=== PATIENT | male | born 1945 | race Caucasian/White ===

== ENCOUNTER 2018-10-23 08:40 | Inpatient (IN) ==
[2018-10-23 08:53] VITALS: BMI 19.0
--- NOTE | 2018-10-23 09:03 | DR.EXTPAIN ---
HPI Time seen Time Seen by Provider: 10/23/18 09:01 PCP Primary Care Physician: TAMERA HPI Comment HPI Comment: HISTORY LUNG CA. PATIENT SAID PAIN IS SEVERE. DENIES TRAUMA. Complaint/Symptoms Chief Complaint Doctor Comments: NECK AND BACK PAIN NOT IMPROVE WITH PAIN MED AT HOME. Chief Complaint:: PATIENT STATED THAT HE IS HAVING SEVERE NECK AND BACK PAIN. HE STATED THAT HE TAKES PERCOCET 5/325 MG AT HOME AND THE LAST DOSE WAS 5 HOURS AGO. 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 OLGUIN IN [place] FOR THIS. HE WAS IN THE HOSPITAL FOR 6 DAYS AND WAS RELEASED TUESDAY. 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 Past Surgical History: Yes Family History History of Family Medical Conditions: No Social History Does patient currently use any type of tobacco product: No Have you used tobacco products in the last 12 months: No Type of Tobacco Use: None Does any household member use tobacco: No Alcohol Use: None Do you use any recreational Drugs:: No Lives With: Family Lives Where: Home infectious screening In the last 2 months have you had wt loss of >10#?: NO Have you had fever, night sweats or hemotysis?: No Have you traveled outside the country in the last 6 months?: No Isolation: Standard ROS Review of Systems Constitutional: Weakness and Fatigue Eyes: No Symptoms Reported ENTM: No Symptoms Reported Respiratoy: Short of Breath (ON EXERTION) Cardiovascular: No Symptoms Reported Gastrointestinal/Abdominal: No Symptoms Reported Genitourinary: negative Dysuria Neurological: Weakness Musculoskeletal: Back Pain and Neck Integumentary: No Symptoms Reported Hematologic/Lymphatic: No Symptoms Reported Endocrine: No Symptoms Reported Psychiatric: No Symptoms Reported All Other Systems: Reviewed and Negative PE Vital Signs Vitals: Temperature 97.2 F Pulse Rate [Left Brachial] 95 Pulse Rate [Brachial] 105 Pulse Rate 101 Respiratory Rate 20 Blood Pressure [Left Arm] 105/71 Blood Pressure [Right Arm] 115/80 Blood Pressure 103/68 O2 Sat by Pulse Oximetry 96 General Limitations: No Limitations General Appearance: Alert and In Distress (MILD RESP. DISTRESS.) Head Head Exam: Normal Inspection Eyes Eye exam: Normal Appearance ENT ENT Exam: Normal Exam Neck Neck Exam: Normal Inspection Chest Chest Inspection: Symmetric Chest Wall Rise Respiratory Respiratory Exam: Respiratory Distress Respiratory Exam: Bilateral: Rhonchi and Lower: Rhonchi Cardiovascular Cardiovascular Exam: Regular Rate and Normal Rhythm Abdominal Exam Abdominal Exam: Normal Inspection, Normal Bowel Sounds and Soft Extremities Extremities Exam: Normal Inspection Back Back Exam: Tenderness Neurological Neurological Exam: Alert, Oriented X3 and CN II-XII Intact; negative Motor Sensory Deficit Psychiatric Psychiatric Exam: Normal Affect and Normal Mood Skin Skin Exam: Dry MDM Differential Diagnosis Differential Diagnosis: Other (INTRACTABLE PAIN, METASTATIC CANCER, GENERALIZE WEAKNESS, RESPIRATORY DISTRESS.) COURSE Treatment Treatment: SEE ORDERS. Consultation Consultation Comments: DR PHILLIPS WILL ADMIT PATIENT. Education/Counseling Education/Counseling: Patient and Family Educated On: Diagnosis and Needs for Follow Up ROR Labs Reviewed Laboratory Results Reviewed?: Yes Result Diagrams: 11/04/18 05:24 11/04/18 05:24 Laboratory: WBC 6.4 X10^3/uL (3.6-10.0) 11/04/18 05:24 RBC 3.25 X10^6/uL (4.7-6.0) L 11/04/18 05:24 Hgb 10.4 g/dL (13.5-18.0) L 11/04/18 05:24 Hct 31.0 % (42.0-54.0) L 11/04/18 05:24 MCV 95.5 fL (80.0-100.0) 11/04/18 05:24 MCH 31.9 pg (27.0-34.0) 11/04/18 05:24 MCHC 33.4 g/dL (33.0-35.0) 11/04/18 05:24 RDW 17.9 % (11.6-16.5) H 11/04/18 05:24 Plt Count 210 X10^3/uL (150.0-450.0) 11/04/18 05:24 MPV 8.1 fL (7.4-11.0) 11/04/18 05:24 Neut % (Auto) 69.3 % (42.0-75.0) 11/04/18 05:24 Lymph % (Auto) 13.7 % (21.0-51.0) L 11/04/18 05:24 [place] % (Auto) 13.6 % (0.0-13.0) H 11/04/18 05:24 Eos % (Auto) 2.9 % (0.9-2.9) 11/04/18 05:24 Baso % (Auto) 0.5 % (0.2-1.0) 11/04/18 05:24 Neut # (Auto) 4.4 x10^3/uL (2.2-4.8) 11/04/18 05:24 Lymph # (Auto) 0.9 X10^3/uL (1.3-2.9) L 11/04/18 05:24 [place] # (Auto) 0.9 x10^3/uL (0.3-0.8) H 11/04/18 05:24 Eos # (Auto) 0.2 x10^3/uL (0.0-0.2) 11/04/18 05:24 Baso # (Auto) 0.0 X10^3/uL (0.0-0.1) 11/04/18 05:24 Absolute Nucleated RBC 0.0 /100WBC 11/04/18 05:24 Sodium 132 mmol/L (136-145) L 11/04/18 05:24 Corrected Sodium TNP 11/04/18 05:24 Potassium 3.9 mmol/L (3.5-5.1) 11/04/18 05:24 Chloride 100 mmol/L (98-107) 11/04/18 05:24 Carbon Dioxide 22.2 mmol/L (21-32) 11/04/18 05:24 BUN 9 mg/dL (7-18) 11/04/18 05:24 Creatinine 0.43 mg/dL (0.70-1.30) L 11/04/18 05:24 Est GFR (MDRD) Af Amer > 60 (>60) 11/04/18 05:24 Est GFR (MDRD) Non-Af > 60 (>60) 11/04/18 05:24 Glucose 109 mg/dL (65-99) H 11/04/18 05:24 Calcium 7.7 mg/dL (8.5-10.1) L 11/04/18 05:24 Corrected Calcium 9.6 mg/dL (8.5-10.1) 11/04/18 05:24 Magnesium 2.6 mg/dL (1.7-2.9) 10/26/18 04:33 Iron 20 ug/dL (50-175) L 10/28/18 12:43 Transferrin 121 mg/dL (202-364) L 10/28/18 12:43 Ferritin 682 ng/mL (26-388) H 10/28/18 12:43 Total Bilirubin 0.30 mg/dL (0.2-1.0) 11/04/18 05:24 AST 31 Units/L (15-37) 11/04/18 05:24 ALT 23 Units/L (12-78) 11/04/18 05:24 Alkaline Phosphatase 82 Units/L (46-116) 11/04/18 05:24 Total Protein 5.1 g/dL (6.4-8.2) L 11/04/18 05:24 Albumin 1.6 g/dL (3.4-5.0) L 11/04/18 05:24 Globulin 3.5 g/dL (2.5-4.5) 11/04/18 05:24 Albumin/Globulin Ratio 0.5 Ratio (1.1-2.1) L 11/04/18 05:24 Vitamin B12 1250 pg/mL (193-986) H 10/28/18 12:43 Folate 19.0 ng/mL (>8.6) 10/28/18 12:43 Specimen Type Clean catch urine 10/23/18 21:34 Urine Color Yellow (YELLOW) 10/23/18 21:34 Urine Appearance Clear (CLEAR) 10/23/18 21:34 Urine pH 6.0 (5.0 - 8.0) 10/23/18 21:34 Ur Specific [place] 1.020 (1.000-1.030) 10/23/18 21:34 Urine Protein 1+ (NEGATIVE) 10/23/18 21:34 Urine Glucose (UA) Negative (NEGATIVE) 10/23/18 21:34 Urine Ketones 1+ (NEGATIVE) 10/23/18 21:34 Urine Occult Blood 3+ (NEGATIVE) 10/23/18 21:34 Urine Nitrite Negative (NEGATIVE) 10/23/18 21:34 Urine Bilirubin Negative (NEGATIVE) 10/23/18 21:34 Urine Urobilinogen Normal (NORMAL) 10/23/18 21:34 Ur Leukocyte Esterase Negative (NEGATIVE) 10/23/18 21:34 Urine RBC 0-2 /HPF (NONE SEEN) 10/23/18 21:34 Urine WBC 0-2 /HPF (NONE SEEN) 10/23/18 21:34 Ur Squamous Epith Cells Rare /HPF (NEGATIVE) 10/23/18 21:34 Amorphous Sediment 1+ /HPF (NEGATIVE) 10/23/18 21:34 Urine Bacteria Negative /HPF (NEGATIVE) 10/23/18 21:34 Urine Mucus Moderate /HPF (NEGATIVE) 10/23/18 21:34 Ur Culture Indicated? No/not indicated 10/23/18 21:34 XRAY XRAY Interpreted by: Radiologist XRAY Findings: REPORT DISCUSS WITH PATIENT. Diagnosis Discharge Problem: Cancer associated pain Back pain Qualifiers: Back pain location: low back pain Back pain laterality: bilateral Sciatica presence: with sciatica Sciatica laterality: bilateral sciatica Instructions Instructions: Chronic Obstructive Pulmonary Disease Exacerbation, [id number] Constipation, Adult, [id number] What You Need to Know About Chronic Back Pain Back Pain, Adult, [id number] Pain Medicine Instructions, [place]bus-id-Ixni Lung Cancer Fentanyl skin patch
[2018-10-23] MEDS ORDERED: ZOFRAN INJ 4 MG VIAL IVP ONE (09:16)
[2018-10-23] MEDS ORDERED: DILAUDID INJ IVP ONE ×2 (09:17→11:39)
[2018-10-23] MEDS ORDERED: ZOFRAN INJ 4 MG VIAL ONE ×2 (09:20→15:12)
[2018-10-23] MEDS ORDERED: DILAUDID INJ ONE ×3 (09:21→15:12)
--- NOTE | 2018-10-23 12:01 | CT ---
HISTORY: Severe back pain Study: CT lumbar spine without contrast Comparison: None Technique: Axial noncontrast images with coronal and sagittal reformats. Dose reduction procedures were used with mA/kv adjusted for body size. Findings: The bones are osteopenic. The alignment is normal. The vertebral bodies are of average height. No compression fractures are identified. Mixed lytic and sclerotic lesions are identified involving the right side of the L1 vertebral body and right pedicleand the vertebral body of L3. These are suspicious for metastatic foci. The pedicles, spinous processes, and posterior elements are intact. The visualized portions of the SI joints and sacrum are intact. There is a sclerotic lesion in the left iliac bone possibly a metastasis. The disc levels are evaluated as follows: L1-2 level: No evidence for compressive disc disease. The neural foramina are patent. Bilateral facet arthropathy is present. L2-3 level: Concentric disc bulging effaces the thecal sac and contributes along with pedicular shortening to lateral recess narrowing bilaterally. Bilateral facet arthropathy is present. L3-4 level: Concentric disc bulging effaces the thecal sac and contributes along with pedicular shortening and facet arthropathy to lateral recess narrowing bilaterally. L3-4 level: Broad-based disc protrusion contributes along with pedicular shortening and severe facet arthropathy to a significant canal stenosis with lateral recess and foraminal narrowing bilaterally. L5-S1 level: No definite evidence for compressive disc protrusion. Pedicular shortening contributes to lateral recess and foraminal narrowing bilaterally. 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 Nuclear medicine bone scan is recommended for further evaluation Findings for each disc level described in detail above Reported By:
[2018-10-23] MEDS ORDERED: ALBUTEROL SULFATE IN PRN (14:40)
[2018-10-23] MEDS ORDERED: VENTOLIN or PROAIR HFA IN PRN (14:40)
[2018-10-23] MEDS ORDERED: NS 1000 ML 1,000 ML ONE (14:57)
[2018-10-23] MEDS: NS 1000 ML 1,000 ML IV SCH (15:05)
[2018-10-23] MEDS: ZOFRAN INJ 4 MG VIAL IVP PRN (15:15)
[2018-10-23] MEDS: DILAUDID INJ IVP PRN ×3 (15:15→23:20)
[2018-10-23] MEDS ORDERED: LOVENOX INJ 60 MG SYR SC ONE (15:45)
[2018-10-23] MEDS ORDERED: LOVENOX INJ 60 MG SYR SC SCH (16:00)
[2018-10-23] MEDS: DUONEB 0.5 MG/3 MG NEB SCH ×2 (17:27→20:51)
[2018-10-23] MEDS: PULMICORT NEB TX 0.5 MG NEB SCH (20:51)
[2018-10-23] MEDS: COLACE CAP 100 MG PO SCH (21:20)
[2018-10-23] MEDS: MILK OF MAGNESIA PO SCH (21:20)
[2018-10-23] MEDS: ATIVAN TAB 0.5 MG PO SCH ×2 (21:21→23:20)
[2018-10-23 21:56] LABS: BILIRUBIN,URINE NEGATIVE (NEGATIVE); BLOOD/HEMOGLOBIN,URINE 3+ (NEGATIVE); GLUCOSE, URINE NEGATIVE (NEGATIVE); KETONES,URINE 1+ (NEGATIVE); LEUKOCYTE ESTERASE ,URINE NEGATIVE (NEGATIVE); NITRITES,URINE NEGATIVE (NEGATIVE); PROTEIN,URINE 1+ (NEGATIVE); UROBILINOGEN,URINE NORMAL (NORMAL)
[2018-10-23 22:03] LABS: APPEARANCE,URINE CLEAR (CLEAR); COLOR,URINE YELLOW (YELLOW)
[2018-10-23 22:04] LABS: AMORPHOUS SEDIMENT,UR 1+ /HPF (NEGATIVE); BACTERIA,URINE NEGATIVE /HPF (NEGATIVE); MUCUS,URINE MODERATE /HPF (NEGATIVE); RBC,URINE 0-2 /HPF (NONE SEEN); SQUAMOUS EPITHELIAL CELL,UR RARE /HPF (NEGATIVE)
[2018-10-24] MEDS: DUONEB 0.5 MG/3 MG NEB SCH ×5 (00:31→20:55)
[2018-10-24] MEDS: NS 1000 ML 1,000 ML IV SCH ×2 (03:19→19:56)
[2018-10-24] MEDS: DILAUDID INJ IVP PRN ×5 (03:19→20:00)
[2018-10-24 05:00] LABS: BASOPHILS % (AUTO) 0.2 % (0.2-1.0); EOSINOPHILS # (AUTO) 0.1 x10^3/uL (0.0-0.2); HEMATOCRIT 32.3 % (42.0-54.0); HEMOGLOBIN 10.9 g/dL (13.5-18.0); LYMPHOCYTES # (AUTO) 0.3 X10^3/uL (1.3-2.9); LYMPHOCYTES % (AUTO) 3.5 % (21.0-51.0); MEAN CORPUSCULAR HEMOGLOBIN 32.3 pg (27.0-34.0); MEAN CORPUSCULAR HGB CONC 33.8 g/dL (33.0-35.0); MEAN CORPUSCULAR VOLUME 95.5 fL (80.0-100.0); MEAN PLATELET VOLUME 7.9 fL (7.4-11.0); MONOCYTES # (AUTO) 0.8 x10^3/uL (0.3-0.8); MONOCYTES % (AUTO) 8.6 % (0.0-13.0); NEUTROPHILS # (AUTO) 7.8 x10^3/uL (2.2-4.8); NEUTROPHILS % (AUTO) 86.7 % (42.0-75.0); PLATELET COUNT 276 X10^3/uL (150.0-450.0); RED BLOOD COUNT 3.38 X10^6/uL (4.7-6.0)
[2018-10-24 05:10] LABS: ALANINE AMINOTRANSFERASE 41 Units/L (12-78); ALBUMIN 2.5 g/dL (3.4-5.0); ALKALINE PHOSPHATASE 56 Units/L (46-116); ASPARTATE AMINO TRANSFERASE 26 Units/L (15-37); BLOOD UREA NITROGEN 22 mg/dL (7-18); CHLORIDE 100 mmol/L (98-107); COR CA(FOR HYPOALB) 9.2 mg/dL (8.5-10.1); CREATININE 0.56 mg/dL (0.70-1.30); SODIUM 134 mmol/L (136-145); eGFR NON BLACK RACES > 60 (>60)
[2018-10-24] MEDS: LOVENOX INJ 60 MG SYR SC SCH ×2 (05:10→17:11)
[2018-10-24] MEDS ORDERED: POTASSIUM CHL 60 MEQ/NS 0.45% 500 ML IV PRN (05:25)
[2018-10-24] MEDS ORDERED: MICRO K EXTEN CAP 10 MEQ PO PRN (05:25)
[2018-10-24] MEDS ORDERED: POTASSIUM CHL 40 MEQ/NS 0.45% 500 ML IV PRN (05:25)
[2018-10-24] MEDS ORDERED: K-RIDER 10 MEQ/NS 100 ML 10 MEQ/100 ML BAG IV PRN (05:25)
[2018-10-24] MEDS ORDERED: POTASSIUM CHLORIDE LIQ 20 MEQ UDC PO PRN (05:25)
[2018-10-24] MEDS ORDERED: KLOR-CON PO PRN (05:25)
[2018-10-24] MEDS: MAGNESIUM SULFATE 1 GRAM/100 mL PREMIX 1 GM/100 ML BAG IV PRN ×2 (06:08→17:10)
[2018-10-24] MEDS: MILK OF MAGNESIA PO SCH ×2 (06:08→20:10)
[2018-10-24] MEDS: COLACE CAP 100 MG PO SCH ×2 (06:09→19:59)
[2018-10-24] MEDS: PULMICORT NEB TX 0.5 MG NEB SCH ×2 (08:58→20:55)
[2018-10-24] MEDS: ATIVAN TAB 0.5 MG PO SCH ×2 (15:22→19:59)
[2018-10-24] MEDS ORDERED: TORADOL 30 MG VIAL IVP PRN (15:24)
[2018-10-24] MEDS: ZOFRAN INJ 4 MG VIAL IVP PRN (20:00)
[2018-10-24] MEDS: CHECK PATCH XX SCH (20:08)
[2018-10-24] MEDS ORDERED: DULCOLAX SUPPOSITORY 10 MG RECTAL ONE (20:38)
[2018-10-25] MEDS: DILAUDID INJ IVP PRN ×3 (00:12→12:12)
[2018-10-25] MEDS: DUONEB 0.5 MG/3 MG NEB SCH ×7 (01:00→20:41)
[2018-10-25] MEDS: NS 1000 ML 1,000 ML IV SCH ×3 (03:41→17:36)
[2018-10-25 05:23] LABS: BASOPHILS # (AUTO) 0.1 X10^3/uL (0.0-0.1); BASOPHILS % (AUTO) 0.8 % (0.2-1.0); EOSINOPHILS # (AUTO) 0.2 x10^3/uL (0.0-0.2); HEMOGLOBIN 10.6 g/dL (13.5-18.0); LYMPHOCYTES # (AUTO) 0.4 X10^3/uL (1.3-2.9); LYMPHOCYTES % (AUTO) 4.5 % (21.0-51.0); MEAN CORPUSCULAR HEMOGLOBIN 32.1 pg (27.0-34.0); MEAN CORPUSCULAR HGB CONC 33.1 g/dL (33.0-35.0); MEAN PLATELET VOLUME 8.1 fL (7.4-11.0); MONOCYTES # (AUTO) 0.8 x10^3/uL (0.3-0.8); MONOCYTES % (AUTO) 9.5 % (0.0-13.0); NEUTROPHILS # (AUTO) 6.7 x10^3/uL (2.2-4.8); NEUTROPHILS % (AUTO) 83.2 % (42.0-75.0); PLATELET COUNT 226 X10^3/uL (150.0-450.0); RED CELL DISTRIBUTION WIDTH 19.2 % (11.6-16.5)
[2018-10-25 05:39] LABS: ALANINE AMINOTRANSFERASE 43 Units/L (12-78); ALBUMIN 2.4 g/dL (3.4-5.0); ALKALINE PHOSPHATASE 71 Units/L (46-116); ASPARTATE AMINO TRANSFERASE 31 Units/L (15-37); BLOOD UREA NITROGEN 19 mg/dL (7-18); CALCIUM 7.9 mg/dL (8.5-10.1); CHLORIDE 99 mmol/L (98-107); COR CA(FOR HYPOALB) 9.2 mg/dL (8.5-10.1); CREATININE 0.58 mg/dL (0.70-1.30); MAGNESIUM 2.3 mg/dL (1.7-2.9); SODIUM 133 mmol/L (136-145); eGFR NON BLACK RACES > 60 (>60)
[2018-10-25] MEDS: LOVENOX INJ 60 MG SYR SC SCH ×2 (05:46→17:36)
[2018-10-25] MEDS: K-DUR TAB 20 MEQ PO PRN (06:06)
[2018-10-25] MEDS: ATIVAN TAB 0.5 MG PO SCH ×2 (08:45→10:35)
[2018-10-25] MEDS: PULMICORT NEB TX 0.5 MG NEB SCH ×2 (08:45→20:41)
[2018-10-25] MEDS: CHECK PATCH XX SCH ×2 (10:08→20:41)
--- NOTE | 2018-10-25 12:21 | DR.H&P ---
H&P - History & Physical for Day of: H&P Date: 10/23/18 - Chief Complaint Chief Complaint: NECK PAIN, BACK PAIN - History of Present Illness History of Present Illness: IS A 72 YEAR OLD PATIENT OF OURS WHO PRESENTED TO THE EMERGENCY ROOM WITH COMPLAINTS OF SEVERE NECK AND UPPER AND LOWER BACK PAIN. HE REPORTS A HISTORY OF LUNG AND SPINE CANCER FOR WHICH HE IS CURRENLY BEING TREATED BY . HE REPORTS TAKING PERCOCET 5/325MG PO AT HOME WITH NO RELIEF. ON ARRIVAL, VITALS WERE 98.2-107-20-92%-103/68. LABS WERE OBTAINED. ABNORMAL LAB VALUES INCLUDE THE FOLLOWING: RBC 3.38, HGB 10.9, HCT 32.3, SODIUM 134, BUN 22, CREATINE 0.56, CALCIUM 8.0, TOTAL PROTEIN 6.0, ALBUMIN 2.5. URINALYSIS REVEALED WBC 0-2, RBC 0-2, BACTERIA NEGATIVE, MUCUS MODERATE, LEUKOCYTES NEGATIVE. A LUMBAR SPINE CT WAS OBTAINED AND REVEALED: L1-2 level: No evidence for compressive disc disease. The neural foramina are patent. Bilateral facet arthropathy is present. L2-3 level: Concentric disc bulging effaces the thecal sac and contributes along with pedicular shortening to lateral recess narrowing bilaterally. Bilateral facet arthropathy is present. L3-4 level: Concentric disc bulging effaces the thecal sac and contributes along with pedicular shortening and facet arthropathy to lateral recess narrowing bilaterally. L3-4 level: Broad-based disc protrusion contributes along with pedicular shortening and severe facet arthropathy to a significant canal stenosis with lateral recess and foraminal narrowing bilaterally. L5-S1 level: No definite evidence for compressive disc protrusion. Pedicular shortening contributes to lateral recess and foraminal narrowing bilaterally. HE WAS GIVEN DILAUDID 1MG IV X 2 DOSES WITH ONLY MILD RELIEF IN PAIN. HE WAS ADMITTED TO THE HOSPITAL FOR FURTHER EVALUATION AND TREATMENT OF INTRACTABLE BACK PAIN. HE WAS STARTED ON DILAUDID 1MG IV Q4H PRN PAIN, ZOFRAN 4MG IV Q8H PRN, AND NORMAL SALINE AT 50ML/HR. WE PLAN TO FOLLOW UP WITH AM LABS AND CONTINUE TO MONITOR. 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 - Past Surgical History Surgical History: Other - Family History Family Medical History: Cancer - Social History Does patient currently use any type of tobacco product: No Have you used tobacco products in the last 12 months: No Type of Tobacco Use: None How many years tobacco product used: 28 Does any household member use tobacco: No Alcohol Use: None Drug Use: Prescription Drugs - Medications Home Medications: No Known Drug Allergies Allergy (Verified 10/08/18 13:25) CONTINUE taking the following medications enoxaparin 60 mg SUBCUT Q12H 10/23/18 [History] folic acid 1 mg PO QDAY 10/23/18 [History] - Review of Systems Constitutional: Weakness Eyes: No Symptoms Reported ENT: No Symptoms Reported Respiratory: Shortness of Breath Cardiovascular: No Symptoms Reported Gastrointestinal: No Symptoms Reported Genitourinary: No Symptoms Reported Musculoskeletal: See HPI, Back Pain, Neck Pain Skin: No Symptoms Reported Neurological: Weakness - Physical Exam Vital Signs: Temperature 99.5 F Pulse Rate [Left Brachial] 106 Pulse Rate [Brachial] 105 Pulse Rate 101 Respiratory Rate 20 Blood Pressure [Left Arm] 112/71 Blood Pressure [Right Arm] 115/80 Blood Pressure 103/68 O2 Sat by Pulse Oximetry 92 Oriented: Normal Eyes: Normal Ear: Normal Nose: Normal Throat: Normal Respiratory: Diminished Throughout Cardiovascular: Normal : Normal Auscultation: Bowel Sounds: Normal Palpation: Normal Tenderness: Normal Skin: Normal Musculoskeletal: Back:Thoracic, Back:Lumbar, Back:Midline, Tender Psychiatric: Normal Mood Description: Calm Affect: Normal Speech Pattern: Clear - Assessment/Plan (1) Intractable back pain Status: Acute Plan: DILAUDID 1MG IV Q4H PRN PAIN, CONTINUE TO MONITOR (2) Neck pain Status: Acute Plan: DILAUDID 1MG IV Q4H PRN PAIN, CONTINUE TO MONITOR - Allergies Allergies/Adverse Reactions: Allergies Allergy/AdvReac Type Severity Reaction Status Date / Time No Known Drug Allergies Allergy Verified 10/08/18 13:25
--- NOTE | 2018-10-25 12:33 | RAD ---
History abdominal pain. No bowel movement. Study: KUB, portable Comparison: None Findings: There is a prominent amount of fecal material in the ascending and descending colon. There is prominent gas in colon as well. No definite small bowel distention is demonstrated. There is no abnormal soft tissue calcification demonstrated. Impression: Prominent fecal material in colon and prominent gas. However no definite evidence for obstruction. Reported By:
[2018-10-25] MEDS: MILK OF MAGNESIA PO SCH ×3 (15:25→20:32)
[2018-10-25] MEDS: COLACE CAP 100 MG PO SCH ×2 (15:25→20:31)
[2018-10-25] MEDS: TORADOL 30 MG VIAL IVP SCH ×2 (15:25→20:33)
[2018-10-26] MEDS: DUONEB 0.5 MG/3 MG NEB SCH ×7 (01:07→20:45)
[2018-10-26] MEDS: ATIVAN TAB 0.5 MG PO PRN (02:30)
[2018-10-26] MEDS: TORADOL 30 MG VIAL IVP SCH ×2 (02:48→08:55)
[2018-10-26 05:19] LABS: BASOPHILS % (AUTO) 0.5 % (0.2-1.0); EOSINOPHILS # (AUTO) 0.1 x10^3/uL (0.0-0.2); EOSINOPHILS % (AUTO) 1.9 % (0.9-2.9); HEMATOCRIT 28.7 % (42.0-54.0); HEMOGLOBIN 9.7 g/dL (13.5-18.0); LYMPHOCYTES # (AUTO) 0.2 X10^3/uL (1.3-2.9); LYMPHOCYTES % (AUTO) 3.8 % (21.0-51.0); MEAN CORPUSCULAR HEMOGLOBIN 32.5 pg (27.0-34.0); MEAN CORPUSCULAR HGB CONC 33.7 g/dL (33.0-35.0); MEAN CORPUSCULAR VOLUME 96.7 fL (80.0-100.0); MONOCYTES # (AUTO) 0.6 x10^3/uL (0.3-0.8); MONOCYTES % (AUTO) 9.4 % (0.0-13.0); NEUTROPHILS # (AUTO) 5.2 x10^3/uL (2.2-4.8); NEUTROPHILS % (AUTO) 84.4 % (42.0-75.0); PLATELET COUNT 180 X10^3/uL (150.0-450.0); RED BLOOD COUNT 2.97 X10^6/uL (4.7-6.0); RED CELL DISTRIBUTION WIDTH 18.5 % (11.6-16.5); WHITE BLOOD COUNT 6.1 X10^3/uL (3.6-10.0)
[2018-10-26 05:32] LABS: ALANINE AMINOTRANSFERASE 36 Units/L (12-78); ALKALINE PHOSPHATASE 70 Units/L (46-116); ASPARTATE AMINO TRANSFERASE 27 Units/L (15-37); BLOOD UREA NITROGEN 19 mg/dL (7-18); CALCIUM 7.6 mg/dL (8.5-10.1); CARBON DIOXIDE 25.6 mmol/L (21-32); CHLORIDE 101 mmol/L (98-107); COR CA(FOR HYPOALB) 9.2 mg/dL (8.5-10.1); SODIUM 134 mmol/L (136-145); TOTAL PROTEIN 5.3 g/dL (6.4-8.2); eGFR NON BLACK RACES > 60 (>60)
[2018-10-26] MEDS: LOVENOX INJ 60 MG SYR SC SCH ×2 (05:37→17:46)
[2018-10-26] MEDS: K-DUR TAB 20 MEQ PO PRN (06:27)
[2018-10-26] MEDS: COLACE CAP 100 MG PO SCH ×2 (08:54→20:18)
[2018-10-26] MEDS: MILK OF MAGNESIA PO SCH ×4 (08:54→20:18)
[2018-10-26] MEDS: CHECK PATCH XX SCH ×2 (10:10→20:19)
[2018-10-26] MEDS: NS 1000 ML 1,000 ML IV SCH ×3 (10:10→20:20)
[2018-10-26] MEDS: PULMICORT NEB TX 0.5 MG NEB SCH ×2 (11:25→20:45)
[2018-10-26] MEDS: CYMBALTA PO SCH (12:01)
[2018-10-26] MEDS: ZOFRAN INJ 4 MG VIAL IVP PRN (14:40)
[2018-10-26] MEDS: DILAUDID INJ IVP PRN (14:57)
[2018-10-26] MEDS ORDERED: BUTT CREAM (COMPOUND) TOP PRN (18:00)
--- NOTE | 2018-10-26 21:30 | PCM.PROG ---
Progress Note - Progress Note for Day of Date of Exam: 10/24/18 - Subjective Subjective: WAS ADMITTED FOR INTRACTABLE NECK AND BACK PAIN. HE HAS A HISTORY OF CANCER TO THE LUNGS AND SPINE. TODAY, HE IS ALERT AND ORIENTED, LYING IN BED ON MORNING ROUNDS. HE CONTINUES WITH COMPLAINTS OF UPPER AND LOWER BACK PAIN WELL NECK PAIN. HE ALSO REPORTS GENERALIZED WEAKNESS. HE DENIES A BOWEL MOVEMENT IN SEVERAL DAYS. ON EXAMINATION, HEART IS REGULAR IN RATE AND RHYTHM. BILATERAL LUNGS ARE NOTED WITH DIMINISHED LUNG SOUNDS THROUGHOUT. ABDOMEN IS FLAT, SOFT, AND NON-TENDER WITH NORMAL HYPOACTIVE BOWEL SOUNDS. HIS VITALS THIS MORNING ARE 98.6-105-18-99%-106/73. LABS WERE OBTAINED. ABNORMAL LAB VALUES INCLUDE THE FOLLOWING: RBC 3.38, HGB 10.9, HCT 32.3, SODIUM 134, BUN 22, CREATININE 0.56, CALCIUM 8.0, TOTAL PROTEIN 6.0, ALBUMIN 2.5. TODAY, WE WILL START A FENTANYL 25MCG TRANSDERMAL PATCH, AND REPLACE HIS POTASSIUM AND MAGNESIUM. OTHERWISE, WE WILL CONTINUE WITH PAIN MANAGEMENT AND CURRENT PLAN OF CARE. OTHERWISE, WE WILL FOLLOW UP WITH AM LABS AND CONTINUE TO MONITOR. - Past Medical Family Social History Past Med/Fam/Surg Hx: No changes since H&P Allergies: Allergies No Known Drug Allergies Allergy (Verified 10/08/18 13:25) - Review of Systems ROS: No change since H&P - Vital Signs and I&O's Vital Signs: Temperature 98.2 F Pulse Rate [Left Brachial] 101 Pulse Rate [Brachial] 105 Pulse Rate 87 Respiratory Rate 18 Blood Pressure [Left Arm] 94/62 Blood Pressure [Right Arm] 115/80 Blood Pressure 103/68 O2 Sat by Pulse Oximetry 93 Intake and Output: Intake & Output 10/24/18 10/25/18 10/26/18 10/27/18 11:59 11:59 11:59 11:59 Intake Total 890 / 890 1065 / 1065 1660 / 1660 400 / 400 Output Total 300 / 300 300 / 300 Balance 590 / 590 765 / 765 1660 / 1660 400 / 400 - Physical Exam Oriented: Normal Eyes: Normal Ear: Normal Nose: Normal Throat: Normal Respiratory: Generalized, Diminished Cardiovascular: Tachycardia. negative: S3, S4, Murmur, Edema : Normal Auscultation: Bowel Sounds: Normal Palpation: Normal Tenderness: Normal Skin: Normal Musculoskeletal: Back:Thoracic, Back:Lumbar, Back:Midline, Tender Psychiatric: Normal Mood Description: Calm Affect: Normal Speech Pattern: Clear, Appropriate - Laboratory and Diagnostics Result Diagrams: 10/26/18 04:33 10/26/18 04:33 Labs: Laboratory WBC 6.1 X10^3/uL (3.6-10.0) 10/26/18 04:33 RBC 2.97 X10^6/uL (4.7-6.0) L 10/26/18 04:33 Hgb 9.7 g/dL (13.5-18.0) L 10/26/18 04:33 Hct 28.7 % (42.0-54.0) L 10/26/18 04:33 MCV 96.7 fL (80.0-100.0) 10/26/18 04:33 MCH 32.5 pg (27.0-34.0) 10/26/18 04:33 MCHC 33.7 g/dL (33.0-35.0) 10/26/18 04:33 RDW 18.5 % (11.6-16.5) H 10/26/18 04:33 Plt Count 180 X10^3/uL (150.0-450.0) 10/26/18 04:33 MPV 8.0 fL (7.4-11.0) 10/26/18 04:33 Neut % (Auto) 84.4 % (42.0-75.0) H 10/26/18 04:33 Lymph % (Auto) 3.8 % (21.0-51.0) L 10/26/18 04:33 [place] % (Auto) 9.4 % (0.0-13.0) 10/26/18 04:33 Eos % (Auto) 1.9 % (0.9-2.9) 10/26/18 04:33 Baso % (Auto) 0.5 % (0.2-1.0) 10/26/18 04:33 Neut # (Auto) 5.2 x10^3/uL (2.2-4.8) H 10/26/18 04:33 Lymph # (Auto) 0.2 X10^3/uL (1.3-2.9) L 10/26/18 04:33 [place] # (Auto) 0.6 x10^3/uL (0.3-0.8) 10/26/18 04:33 Eos # (Auto) 0.1 x10^3/uL (0.0-0.2) 10/26/18 04:33 Baso # (Auto) 0.0 X10^3/uL (0.0-0.1) 10/26/18 04:33 Absolute Nucleated RBC 0.0 /100WBC 10/26/18 04:33 Sodium 134 mmol/L (136-145) L 10/26/18 04:33 Corrected Sodium TNP 10/26/18 04:33 Potassium 3.3 mmol/L (3.5-5.1) L 10/26/18 04:33 Chloride 101 mmol/L (98-107) 10/26/18 04:33 Carbon Dioxide 25.6 mmol/L (21-32) 10/26/18 04:33 BUN 19 mg/dL (7-18) H 10/26/18 04:33 Creatinine 0.50 mg/dL (0.70-1.30) L 10/26/18 04:33 Est GFR (MDRD) Af Amer > 60 (>60) 10/26/18 04:33 Est GFR (MDRD) Non-Af > 60 (>60) 10/26/18 04:33 Glucose 104 mg/dL (65-99) H 10/26/18 04:33 Calcium 7.6 mg/dL (8.5-10.1) L 10/26/18 04:33 Corrected Calcium 9.2 mg/dL (8.5-10.1) 10/26/18 04:33 Magnesium 2.6 mg/dL (1.7-2.9) 10/26/18 04:33 Total Bilirubin 0.60 mg/dL (0.2-1.0) 10/26/18 04:33 AST 27 Units/L (15-37) 10/26/18 04:33 ALT 36 Units/L (12-78) 10/26/18 04:33 Alkaline Phosphatase 70 Units/L (46-116) 10/26/18 04:33 Total Protein 5.3 g/dL (6.4-8.2) L 10/26/18 04:33 Albumin 2.0 g/dL (3.4-5.0) L 10/26/18 04:33 Globulin 3.3 g/dL (2.5-4.5) 10/26/18 04:33 Albumin/Globulin Ratio 0.6 Ratio (1.1-2.1) L 10/26/18 04:33 Specimen Type Clean catch urine 10/23/18 21:34 Urine Color Yellow (YELLOW) 10/23/18 21:34 Urine Appearance Clear (CLEAR) 10/23/18 21:34 Urine pH 6.0 (5.0 - 8.0) 10/23/18 21:34 Ur Specific [place] 1.020 (1.000-1.030) 10/23/18 21:34 Urine Protein 1+ (NEGATIVE) 10/23/18 21:34 Urine Glucose (UA) Negative (NEGATIVE) 10/23/18 21:34 Urine Ketones 1+ (NEGATIVE) 10/23/18 21:34 Urine Occult Blood 3+ (NEGATIVE) 10/23/18 21:34 Urine Nitrite Negative (NEGATIVE) 10/23/18 21:34 Urine Bilirubin Negative (NEGATIVE) 10/23/18 21:34 Urine Urobilinogen Normal (NORMAL) 10/23/18 21:34 Ur Leukocyte Esterase Negative (NEGATIVE) 10/23/18 21:34 Urine RBC 0-2 /HPF (NONE SEEN) 10/23/18 21:34 Urine WBC 0-2 /HPF (NONE SEEN) 10/23/18 21:34 Ur Squamous Epith Cells Rare /HPF (NEGATIVE) 10/23/18 21:34 Amorphous Sediment 1+ /HPF (NEGATIVE) 10/23/18 21:34 Urine Bacteria Negative /HPF (NEGATIVE) 10/23/18 21:34 Urine Mucus Moderate /HPF (NEGATIVE) 10/23/18 21:34 Ur Culture Indicated? No/not indicated 10/23/18 21:34 - Plan (1) Intractable back pain Status: Acute Plan: FENTANYL 25MCG PATCH, DILAUDID 1MG IV Q4H PRN PAIN, CONTINUE TO MONITOR (2) Neck pain Status: Acute Plan: FENTANYL 25MCG PATCH, DILAUDID 1MG IV Q4H PRN PAIN, CONTINUE TO MONITOR
--- NOTE | 2018-10-26 21:37 | PCM.PROG ---
Progress Note - Progress Note for Day of Date of Exam: 10/25/18 - Subjective Subjective: WAS ADMITTED FOR INTRACTABLE NECK AND BACK PAIN. HE HAS A HISTORY OF CANCER TO THE LUNGS AND SPINE. TODAY, HE IS ALERT AND ORIENTED, LYING IN BED ON MORNING ROUNDS. HE CONTINUES WITH COMPLAINTS OF UPPER AND LOWER BACK PAIN WELL NECK PAIN. HE REPORTS SLIGHT IMPROVEMENT SINCE ADMISSION. HE CONTINUES WITH GENERALIZED WEAKNESS AND DENIES A BOWEL MOVEMENT. ON EXAMINATION, HEART IS REGULAR IN RATE AND RHYTHM. BILATERAL LUNGS ARE NOTED WITH DIMINISHED LUNG SOUNDS THROUGHOUT. ABDOMEN IS FLAT, SOFT, AND NON-TENDER WITH NORMAL HYPOACTIVE BOWEL SOUNDS. HIS VITALS THIS MORNING ARE 98.2-107-20-90%NC-101/65. LABS WERE OBTAINED. ABNORMAL LAB VALUES INCLUDE THE FOLLOWING: RBC 3.30, HGB 10.6, HCT 32.0, SODIUM 133, BUN 19, CREATININE 0.58, CALCIUM 7.9, TOTAL BILI 1.10, TOTAL PROTEIN 6.0, ALBUMIN 2.4. TODAY, WE WILL START A BOWEL REGIMEN AND ATIVAN 0.5MG PO BID PRN. OTHERWISE, WE WILL CONTINUE WITH PAIN MANAGEMENT AND CURRENT PLAN OF CARE. OTHERWISE, WE WILL FOLLOW UP WITH AM LABS AND CONTINUE TO MONITOR. - Past Medical Family Social History Past Med/Fam/Surg Hx: No changes since H&P Allergies: Allergies No Known Drug Allergies Allergy (Verified 10/08/18 13:25) - Review of Systems ROS: No change since H&P - Vital Signs and I&O's Vital Signs: Temperature 98.2 F Pulse Rate [Left Brachial] 101 Pulse Rate [Brachial] 105 Pulse Rate 87 Respiratory Rate 18 Blood Pressure [Left Arm] 94/62 Blood Pressure [Right Arm] 115/80 Blood Pressure 103/68 O2 Sat by Pulse Oximetry 93 Intake and Output: Intake & Output 10/24/18 10/25/18 10/26/18 10/27/18 11:59 11:59 11:59 11:59 Intake Total 890 / 890 1065 / 1065 1660 / 1660 400 / 400 Output Total 300 / 300 300 / 300 Balance 590 / 590 765 / 765 1660 / 1660 400 / 400 - Physical Exam Oriented: Normal Eyes: Normal Ear: Normal Nose: Normal Throat: Normal Respiratory: Generalized, Diminished Cardiovascular: Tachycardia. negative: S3, S4, Murmur, Edema : Normal Auscultation: Bowel Sounds: Normal Tenderness: Normal Skin: Normal Musculoskeletal: Back:Thoracic, Back:Lumbar, Back:Midline, Tender Psychiatric: Normal Mood Description: Calm Affect: Normal Speech Pattern: Clear, Appropriate - Laboratory and Diagnostics Result Diagrams: 10/26/18 04:33 10/26/18 04:33 Labs: Laboratory WBC 6.1 X10^3/uL (3.6-10.0) 10/26/18 04:33 RBC 2.97 X10^6/uL (4.7-6.0) L 10/26/18 04:33 Hgb 9.7 g/dL (13.5-18.0) L 10/26/18 04:33 Hct 28.7 % (42.0-54.0) L 10/26/18 04:33 MCV 96.7 fL (80.0-100.0) 10/26/18 04:33 MCH 32.5 pg (27.0-34.0) 10/26/18 04:33 MCHC 33.7 g/dL (33.0-35.0) 10/26/18 04:33 RDW 18.5 % (11.6-16.5) H 10/26/18 04:33 Plt Count 180 X10^3/uL (150.0-450.0) 10/26/18 04:33 MPV 8.0 fL (7.4-11.0) 10/26/18 04:33 Neut % (Auto) 84.4 % (42.0-75.0) H 10/26/18 04:33 Lymph % (Auto) 3.8 % (21.0-51.0) L 10/26/18 04:33 [place] % (Auto) 9.4 % (0.0-13.0) 10/26/18 04:33 Eos % (Auto) 1.9 % (0.9-2.9) 10/26/18 04:33 Baso % (Auto) 0.5 % (0.2-1.0) 10/26/18 04:33 Neut # (Auto) 5.2 x10^3/uL (2.2-4.8) H 10/26/18 04:33 Lymph # (Auto) 0.2 X10^3/uL (1.3-2.9) L 10/26/18 04:33 [place] # (Auto) 0.6 x10^3/uL (0.3-0.8) 10/26/18 04:33 Eos # (Auto) 0.1 x10^3/uL (0.0-0.2) 10/26/18 04:33 Baso # (Auto) 0.0 X10^3/uL (0.0-0.1) 10/26/18 04:33 Absolute Nucleated RBC 0.0 /100WBC 10/26/18 04:33 Sodium 134 mmol/L (136-145) L 10/26/18 04:33 Corrected Sodium TNP 10/26/18 04:33 Potassium 3.3 mmol/L (3.5-5.1) L 10/26/18 04:33 Chloride 101 mmol/L (98-107) 10/26/18 04:33 Carbon Dioxide 25.6 mmol/L (21-32) 10/26/18 04:33 BUN 19 mg/dL (7-18) H 10/26/18 04:33 Creatinine 0.50 mg/dL (0.70-1.30) L 10/26/18 04:33 Est GFR (MDRD) Af Amer > 60 (>60) 10/26/18 04:33 Est GFR (MDRD) Non-Af > 60 (>60) 10/26/18 04:33 Glucose 104 mg/dL (65-99) H 10/26/18 04:33 Calcium 7.6 mg/dL (8.5-10.1) L 10/26/18 04:33 Corrected Calcium 9.2 mg/dL (8.5-10.1) 10/26/18 04:33 Magnesium 2.6 mg/dL (1.7-2.9) 10/26/18 04:33 Total Bilirubin 0.60 mg/dL (0.2-1.0) 10/26/18 04:33 AST 27 Units/L (15-37) 10/26/18 04:33 ALT 36 Units/L (12-78) 10/26/18 04:33 Alkaline Phosphatase 70 Units/L (46-116) 10/26/18 04:33 Total Protein 5.3 g/dL (6.4-8.2) L 10/26/18 04:33 Albumin 2.0 g/dL (3.4-5.0) L 10/26/18 04:33 Globulin 3.3 g/dL (2.5-4.5) 10/26/18 04:33 Albumin/Globulin Ratio 0.6 Ratio (1.1-2.1) L 10/26/18 04:33 Specimen Type Clean catch urine 10/23/18 21:34 Urine Color Yellow (YELLOW) 10/23/18 21:34 Urine Appearance Clear (CLEAR) 10/23/18 21:34 Urine pH 6.0 (5.0 - 8.0) 10/23/18 21:34 Ur Specific [place] 1.020 (1.000-1.030) 10/23/18 21:34 Urine Protein 1+ (NEGATIVE) 10/23/18 21:34 Urine Glucose (UA) Negative (NEGATIVE) 10/23/18 21:34 Urine Ketones 1+ (NEGATIVE) 10/23/18 21:34 Urine Occult Blood 3+ (NEGATIVE) 10/23/18 21:34 Urine Nitrite Negative (NEGATIVE) 10/23/18 21:34 Urine Bilirubin Negative (NEGATIVE) 10/23/18 21:34 Urine Urobilinogen Normal (NORMAL) 10/23/18 21:34 Ur Leukocyte Esterase Negative (NEGATIVE) 10/23/18 21:34 Urine RBC 0-2 /HPF (NONE SEEN) 10/23/18 21:34 Urine WBC 0-2 /HPF (NONE SEEN) 10/23/18 21:34 Ur Squamous Epith Cells Rare /HPF (NEGATIVE) 10/23/18 21:34 Amorphous Sediment 1+ /HPF (NEGATIVE) 10/23/18 21:34 Urine Bacteria Negative /HPF (NEGATIVE) 10/23/18 21:34 Urine Mucus Moderate /HPF (NEGATIVE) 10/23/18 21:34 Ur Culture Indicated? No/not indicated 10/23/18 21:34 - Plan (1) Intractable back pain Status: Acute Plan: FENTANYL 25MCG PATCH, DILAUDID 1MG IV Q4H PRN PAIN, CONTINUE TO MONITOR (2) Neck pain Status: Acute Plan: FENTANYL 25MCG PATCH, DILAUDID 1MG IV Q4H PRN PAIN, CONTINUE TO MONITOR
--- NOTE | 2018-10-26 22:45 | PCM.PROG ---
Progress Note - Progress Note for Day of Date of Exam: 10/26/18 - Subjective Subjective: WAS ADMITTED FOR INTRACTABLE NECK AND BACK PAIN. HE HAS A HISTORY OF CANCER TO THE LUNGS AND SPINE. TODAY, HE IS ALERT AND ORIENTED, LYING IN BED ON MORNING ROUNDS. HE CONTINUES WITH COMPLAINTS OF UPPER AND LOWER BACK PAIN WELL NECK PAIN. HE REPORTS SLIGHT IMPROVEMENT SINCE YESTERDAY. HE CONTINUES WITH GENERALIZED WEAKNESS AND STILL DENIES A BOWEL MOVEMENT. ON EXAMINATION, HEART IS REGULAR IN RATE AND RHYTHM. BILATERAL LUNGS ARE NOTED WITH DIMINISHED LUNG SOUNDS THROUGHOUT. ABDOMEN IS FLAT, SOFT, AND NON-TENDER WITH NORMAL HYPOACTIVE BOWEL SOUNDS. HIS VITALS THIS MORNING ARE 98.9-95-18-92%-91/54. LABS WERE OBTAINED. ABNORMAL LAB VALUES INCLUDE THE FOLLOWING: RBC 2.97, HGB 9.7, HCT 28.7, SODIUM 134, POTASSIUM 3.3, BUN 19, CREATININE 0.50, GLUCOSE 104, CALCIUM 7.6, TOTAL PROTEIN 5.3, ALBUMIN 2.0. A KUB WAS OBTAINED YESTERDAY. IT REVEALED: Prominent fecal material in colon and prominent gas. However, no definite evidence for obstruction. TODAY, WE WILL START CYMBALTA 30MG PO DAILY. OTHERWISE, WE WILL CONTINUE WITH PAIN MANAGEMENT AND CURRENT PLAN OF CARE. WE WILL FOLLOW UP WITH AM LABS AND CONTINUE TO MONITOR. - Past Medical Family Social History Past Med/Fam/Surg Hx: No changes since H&P Allergies: Allergies No Known Drug Allergies Allergy (Verified 10/08/18 13:25) - Review of Systems ROS: No change since H&P - Vital Signs and I&O's Vital Signs: Temperature 98.2 F Pulse Rate [Left Brachial] 101 Pulse Rate [Brachial] 105 Pulse Rate 87 Respiratory Rate 18 Blood Pressure [Left Arm] 94/62 Blood Pressure [Right Arm] 115/80 Blood Pressure 103/68 O2 Sat by Pulse Oximetry 93 Intake and Output: Intake & Output 10/24/18 10/25/18 10/26/18 10/27/18 11:59 11:59 11:59 11:59 Intake Total 890 / 890 1065 / 1065 1660 / 1660 400 / 400 Output Total 300 / 300 300 / 300 Balance 590 / 590 765 / 765 1660 / 1660 400 / 400 - Physical Exam Oriented: Normal Eyes: Normal Ear: Normal Nose: Normal Throat: Normal Respiratory: Generalized, Diminished Cardiovascular: Tachycardia. negative: S3, S4, Murmur, Edema : Normal Auscultation: Bowel Sounds: Normal Tenderness: Normal Skin: Normal Musculoskeletal: Back:Thoracic, Back:Lumbar, Back:Midline, Tender Psychiatric: Normal Mood Description: Calm Affect: Normal Speech Pattern: Clear, Appropriate - Laboratory and Diagnostics Result Diagrams: 10/26/18 04:33 10/26/18 04:33 Labs: Laboratory WBC 6.1 X10^3/uL (3.6-10.0) 10/26/18 04:33 RBC 2.97 X10^6/uL (4.7-6.0) L 10/26/18 04:33 Hgb 9.7 g/dL (13.5-18.0) L 10/26/18 04:33 Hct 28.7 % (42.0-54.0) L 10/26/18 04:33 MCV 96.7 fL (80.0-100.0) 10/26/18 04:33 MCH 32.5 pg (27.0-34.0) 10/26/18 04:33 MCHC 33.7 g/dL (33.0-35.0) 10/26/18 04:33 RDW 18.5 % (11.6-16.5) H 10/26/18 04:33 Plt Count 180 X10^3/uL (150.0-450.0) 10/26/18 04:33 MPV 8.0 fL (7.4-11.0) 10/26/18 04:33 Neut % (Auto) 84.4 % (42.0-75.0) H 10/26/18 04:33 Lymph % (Auto) 3.8 % (21.0-51.0) L 10/26/18 04:33 [place] % (Auto) 9.4 % (0.0-13.0) 10/26/18 04:33 Eos % (Auto) 1.9 % (0.9-2.9) 10/26/18 04:33 Baso % (Auto) 0.5 % (0.2-1.0) 10/26/18 04:33 Neut # (Auto) 5.2 x10^3/uL (2.2-4.8) H 10/26/18 04:33 Lymph # (Auto) 0.2 X10^3/uL (1.3-2.9) L 10/26/18 04:33 [place] # (Auto) 0.6 x10^3/uL (0.3-0.8) 10/26/18 04:33 Eos # (Auto) 0.1 x10^3/uL (0.0-0.2) 10/26/18 04:33 Baso # (Auto) 0.0 X10^3/uL (0.0-0.1) 10/26/18 04:33 Absolute Nucleated RBC 0.0 /100WBC 10/26/18 04:33 Sodium 134 mmol/L (136-145) L 10/26/18 04:33 Corrected Sodium TNP 10/26/18 04:33 Potassium 3.3 mmol/L (3.5-5.1) L 10/26/18 04:33 Chloride 101 mmol/L (98-107) 10/26/18 04:33 Carbon Dioxide 25.6 mmol/L (21-32) 10/26/18 04:33 BUN 19 mg/dL (7-18) H 10/26/18 04:33 Creatinine 0.50 mg/dL (0.70-1.30) L 10/26/18 04:33 Est GFR (MDRD) Af Amer > 60 (>60) 10/26/18 04:33 Est GFR (MDRD) Non-Af > 60 (>60) 10/26/18 04:33 Glucose 104 mg/dL (65-99) H 10/26/18 04:33 Calcium 7.6 mg/dL (8.5-10.1) L 10/26/18 04:33 Corrected Calcium 9.2 mg/dL (8.5-10.1) 10/26/18 04:33 Magnesium 2.6 mg/dL (1.7-2.9) 10/26/18 04:33 Total Bilirubin 0.60 mg/dL (0.2-1.0) 10/26/18 04:33 AST 27 Units/L (15-37) 10/26/18 04:33 ALT 36 Units/L (12-78) 10/26/18 04:33 Alkaline Phosphatase 70 Units/L (46-116) 10/26/18 04:33 Total Protein 5.3 g/dL (6.4-8.2) L 10/26/18 04:33 Albumin 2.0 g/dL (3.4-5.0) L 10/26/18 04:33 Globulin 3.3 g/dL (2.5-4.5) 10/26/18 04:33 Albumin/Globulin Ratio 0.6 Ratio (1.1-2.1) L 10/26/18 04:33 Specimen Type Clean catch urine 10/23/18 21:34 Urine Color Yellow (YELLOW) 10/23/18 21:34 Urine Appearance Clear (CLEAR) 10/23/18 21:34 Urine pH 6.0 (5.0 - 8.0) 10/23/18 21:34 Ur Specific [place] 1.020 (1.000-1.030) 10/23/18 21:34 Urine Protein 1+ (NEGATIVE) 10/23/18 21:34 Urine Glucose (UA) Negative (NEGATIVE) 10/23/18 21:34 Urine Ketones 1+ (NEGATIVE) 10/23/18 21:34 Urine Occult Blood 3+ (NEGATIVE) 10/23/18 21:34 Urine Nitrite Negative (NEGATIVE) 10/23/18 21:34 Urine Bilirubin Negative (NEGATIVE) 10/23/18 21:34 Urine Urobilinogen Normal (NORMAL) 10/23/18 21:34 Ur Leukocyte Esterase Negative (NEGATIVE) 10/23/18 21:34 Urine RBC 0-2 /HPF (NONE SEEN) 10/23/18 21:34 Urine WBC 0-2 /HPF (NONE SEEN) 10/23/18 21:34 Ur Squamous Epith Cells Rare /HPF (NEGATIVE) 10/23/18 21:34 Amorphous Sediment 1+ /HPF (NEGATIVE) 10/23/18 21:34 Urine Bacteria Negative /HPF (NEGATIVE) 10/23/18 21:34 Urine Mucus Moderate /HPF (NEGATIVE) 10/23/18 21:34 Ur Culture Indicated? No/not indicated 10/23/18 21:34 - Plan (1) Intractable back pain Status: Acute Plan: FENTANYL 25MCG PATCH, DILAUDID 1MG IV Q4H PRN PAIN, CONTINUE TO MONITOR (2) Neck pain Status: Acute Plan: FENTANYL 25MCG PATCH, DILAUDID 1MG IV Q4H PRN PAIN, CONTINUE TO MONITOR
[2018-10-27] MEDS: DILAUDID INJ IVP PRN ×4 (00:33→21:43)
[2018-10-27] MEDS: DUONEB 0.5 MG/3 MG NEB SCH ×6 (00:47→20:56)
[2018-10-27 05:13] LABS: BASOPHILS % (AUTO) 0.7 % (0.2-1.0); EOSINOPHILS # (AUTO) 0.1 x10^3/uL (0.0-0.2); EOSINOPHILS % (AUTO) 2.4 % (0.9-2.9); HEMATOCRIT 26.6 % (42.0-54.0); LYMPHOCYTES # (AUTO) 0.3 X10^3/uL (1.3-2.9); LYMPHOCYTES % (AUTO) 5.7 % (21.0-51.0); MEAN CORPUSCULAR HEMOGLOBIN 32.6 pg (27.0-34.0); MEAN CORPUSCULAR HGB CONC 33.7 g/dL (33.0-35.0); MEAN CORPUSCULAR VOLUME 96.7 fL (80.0-100.0); MEAN PLATELET VOLUME 8.5 fL (7.4-11.0); MONOCYTES # (AUTO) 0.6 x10^3/uL (0.3-0.8); MONOCYTES % (AUTO) 11.1 % (0.0-13.0); NEUTROPHILS # (AUTO) 4.1 x10^3/uL (2.2-4.8); NEUTROPHILS % (AUTO) 80.1 % (42.0-75.0); PLATELET COUNT 159 X10^3/uL (150.0-450.0); RED BLOOD COUNT 2.75 X10^6/uL (4.7-6.0); RED CELL DISTRIBUTION WIDTH 18.2 % (11.6-16.5); WHITE BLOOD COUNT 5.1 X10^3/uL (3.6-10.0)
[2018-10-27 05:32] LABS: ALANINE AMINOTRANSFERASE 31 Units/L (12-78); ALBUMIN 1.8 g/dL (3.4-5.0); ALKALINE PHOSPHATASE 66 Units/L (46-116); ASPARTATE AMINO TRANSFERASE 21 Units/L (15-37); BLOOD UREA NITROGEN 17 mg/dL (7-18); CALCIUM 7.1 mg/dL (8.5-10.1); CARBON DIOXIDE 24.6 mmol/L (21-32); CHLORIDE 104 mmol/L (98-107); COR CA(FOR HYPOALB) 8.9 mg/dL (8.5-10.1); CREATININE 0.45 mg/dL (0.70-1.30); SODIUM 134 mmol/L (136-145); eGFR NON BLACK RACES > 60 (>60)
[2018-10-27] MEDS: LOVENOX INJ 60 MG SYR SC SCH ×3 (05:36→17:05)
[2018-10-27] MEDS: CYMBALTA PO SCH (08:35)
[2018-10-27] MEDS: COLACE CAP 100 MG PO SCH ×2 (08:36→20:15)
[2018-10-27] MEDS: MILK OF MAGNESIA PO SCH ×5 (08:36→20:14)
[2018-10-27] MEDS: CHECK PATCH XX SCH ×2 (08:37→20:16)
[2018-10-27] MEDS: PULMICORT NEB TX 0.5 MG NEB SCH ×2 (08:45→20:57)
[2018-10-27] MEDS: ZOFRAN INJ 4 MG VIAL IVP PRN (11:49)
[2018-10-27] MEDS: NS 1000 ML 1,000 ML IV SCH (17:04)
[2018-10-28] MEDS: DUONEB 0.5 MG/3 MG NEB SCH ×6 (00:49→21:16)
[2018-10-28] MEDS: NS 1000 ML 1,000 ML IV SCH ×2 (04:33→13:59)
[2018-10-28] MEDS: LOVENOX INJ 60 MG SYR SC SCH ×2 (05:23→17:24)
[2018-10-28] MEDS: DILAUDID INJ IVP PRN ×4 (05:24→21:19)
[2018-10-28 06:46] LABS: ALANINE AMINOTRANSFERASE 29 Units/L (12-78); ALBUMIN 1.9 g/dL (3.4-5.0); ALKALINE PHOSPHATASE 69 Units/L (46-116); ASPARTATE AMINO TRANSFERASE 22 Units/L (15-37); BLOOD UREA NITROGEN 11 mg/dL (7-18); CALCIUM 7.6 mg/dL (8.5-10.1); CARBON DIOXIDE 24.8 mmol/L (21-32); CHLORIDE 100 mmol/L (98-107); COR CA(FOR HYPOALB) 9.3 mg/dL (8.5-10.1); CREATININE 0.44 mg/dL (0.70-1.30); SODIUM 133 mmol/L (136-145); TOTAL PROTEIN 5.2 g/dL (6.4-8.2); eGFR NON BLACK RACES > 60 (>60)
[2018-10-28 06:47] LABS: BASOPHILS % (AUTO) 0.5 % (0.2-1.0); EOSINOPHILS # (AUTO) 0.1 x10^3/uL (0.0-0.2); EOSINOPHILS % (AUTO) 2.3 % (0.9-2.9); HEMATOCRIT 27.8 % (42.0-54.0); HEMOGLOBIN 9.4 g/dL (13.5-18.0); LYMPHOCYTES # (AUTO) 0.3 X10^3/uL (1.3-2.9); LYMPHOCYTES % (AUTO) 4.7 % (21.0-51.0); MEAN CORPUSCULAR HEMOGLOBIN 32.2 pg (27.0-34.0); MEAN CORPUSCULAR HGB CONC 33.8 g/dL (33.0-35.0); MEAN CORPUSCULAR VOLUME 95.2 fL (80.0-100.0); MEAN PLATELET VOLUME 8.5 fL (7.4-11.0); MONOCYTES # (AUTO) 0.5 x10^3/uL (0.3-0.8); MONOCYTES % (AUTO) 10.1 % (0.0-13.0); NEUTROPHILS # (AUTO) 4.5 x10^3/uL (2.2-4.8); NEUTROPHILS % (AUTO) 82.4 % (42.0-75.0); PLATELET COUNT 151 X10^3/uL (150.0-450.0); RED BLOOD COUNT 2.92 X10^6/uL (4.7-6.0); RED CELL DISTRIBUTION WIDTH 18.6 % (11.6-16.5); WHITE BLOOD COUNT 5.4 X10^3/uL (3.6-10.0)
[2018-10-28] MEDS: PULMICORT NEB TX 0.5 MG NEB SCH ×2 (08:37→21:16)
[2018-10-28] MEDS: COLACE CAP 100 MG PO SCH ×4 (08:49→21:26)
[2018-10-28] MEDS: MILK OF MAGNESIA PO SCH ×4 (08:49→21:20)
[2018-10-28] MEDS: CHECK PATCH XX SCH ×2 (08:49→21:27)
[2018-10-28] MEDS: CYMBALTA PO SCH (08:55)
[2018-10-28] MEDS: MEGACE PO SCH ×2 (13:59→21:20)
[2018-10-28] MEDS: FLOMAX PO SCH (16:20)
[2018-10-28] MEDS ORDERED: NS 100 ML IV 100 ML with VENOFER 400 MG IV NR ×2 (18:00)
[2018-10-29] MEDS: DILAUDID INJ IVP PRN ×4 (03:51→21:55)
[2018-10-29] MEDS: LOVENOX INJ 60 MG SYR SC SCH ×2 (05:38→18:00)
[2018-10-29] MEDS: NS 1000 ML 1,000 ML IV SCH ×2 (05:39→20:40)
[2018-10-29 06:39] LABS: BASOPHILS % (AUTO) 0.7 % (0.2-1.0); EOSINOPHILS # (AUTO) 0.2 x10^3/uL (0.0-0.2); EOSINOPHILS % (AUTO) 2.7 % (0.9-2.9); HEMATOCRIT 27.1 % (42.0-54.0); HEMOGLOBIN 9.1 g/dL (13.5-18.0); LYMPHOCYTES # (AUTO) 0.3 X10^3/uL (1.3-2.9); LYMPHOCYTES % (AUTO) 4.3 % (21.0-51.0); MEAN CORPUSCULAR HEMOGLOBIN 32.1 pg (27.0-34.0); MEAN CORPUSCULAR HGB CONC 33.7 g/dL (33.0-35.0); MEAN CORPUSCULAR VOLUME 95.2 fL (80.0-100.0); MEAN PLATELET VOLUME 8.5 fL (7.4-11.0); MONOCYTES # (AUTO) 0.5 x10^3/uL (0.3-0.8); MONOCYTES % (AUTO) 8.3 % (0.0-13.0); NEUTROPHILS # (AUTO) 5.4 x10^3/uL (2.2-4.8); PLATELET COUNT 130 X10^3/uL (150.0-450.0); RED BLOOD COUNT 2.84 X10^6/uL (4.7-6.0); RED CELL DISTRIBUTION WIDTH 18.1 % (11.6-16.5); WHITE BLOOD COUNT 6.4 X10^3/uL (3.6-10.0)
[2018-10-29 06:46] LABS: ALANINE AMINOTRANSFERASE 25 Units/L (12-78); ALBUMIN 1.8 g/dL (3.4-5.0); ALKALINE PHOSPHATASE 63 Units/L (46-116); ASPARTATE AMINO TRANSFERASE 23 Units/L (15-37); BLOOD UREA NITROGEN 7 mg/dL (7-18); CALCIUM 7.6 mg/dL (8.5-10.1); CHLORIDE 100 mmol/L (98-107); COR CA(FOR HYPOALB) 9.4 mg/dL (8.5-10.1); CREATININE 0.36 mg/dL (0.70-1.30); SODIUM 132 mmol/L (136-145); TOTAL PROTEIN 4.9 g/dL (6.4-8.2); eGFR NON BLACK RACES > 60 (>60)
[2018-10-29] MEDS: FLOMAX PO SCH (09:13)
[2018-10-29] MEDS: COLACE CAP 100 MG PO SCH ×2 (09:13→20:40)
[2018-10-29] MEDS: MILK OF MAGNESIA PO SCH ×4 (09:14→20:36)
[2018-10-29] MEDS: MEGACE PO SCH ×2 (09:14→20:36)
[2018-10-29] MEDS: CHECK PATCH XX SCH ×2 (09:14→20:36)
[2018-10-29] MEDS: CYMBALTA PO SCH (09:16)
[2018-10-29] MEDS: PULMICORT NEB TX 0.5 MG NEB SCH ×2 (09:30→21:03)
[2018-10-29] MEDS: DUONEB 0.5 MG/3 MG NEB PRN ×2 (09:30→17:05)
[2018-10-29] MEDS: ATIVAN TAB 0.5 MG PO PRN (16:17)
[2018-10-30] MEDS: LOVENOX INJ 60 MG SYR SC SCH ×2 (05:15→17:44)
[2018-10-30] MEDS: NS 1000 ML 1,000 ML IV SCH ×3 (05:15→18:08)
[2018-10-30] MEDS: DILAUDID INJ IVP PRN ×2 (05:23→09:03)
[2018-10-30 06:50] LABS: BASOPHILS % (AUTO) 0.6 % (0.2-1.0); EOSINOPHILS # (AUTO) 0.2 x10^3/uL (0.0-0.2); EOSINOPHILS % (AUTO) 2.9 % (0.9-2.9); HEMATOCRIT 26.9 % (42.0-54.0); HEMOGLOBIN 9.2 g/dL (13.5-18.0); LYMPHOCYTES # (AUTO) 0.3 X10^3/uL (1.3-2.9); LYMPHOCYTES % (AUTO) 4.9 % (21.0-51.0); MEAN CORPUSCULAR HEMOGLOBIN 32.5 pg (27.0-34.0); MEAN CORPUSCULAR HGB CONC 34.3 g/dL (33.0-35.0); MEAN CORPUSCULAR VOLUME 94.9 fL (80.0-100.0); MEAN PLATELET VOLUME 8.4 fL (7.4-11.0); MONOCYTES # (AUTO) 0.6 x10^3/uL (0.3-0.8); MONOCYTES % (AUTO) 9.5 % (0.0-13.0); NEUTROPHILS # (AUTO) 5.4 x10^3/uL (2.2-4.8); NEUTROPHILS % (AUTO) 82.1 % (42.0-75.0); PLATELET COUNT 134 X10^3/uL (150.0-450.0); RED BLOOD COUNT 2.83 X10^6/uL (4.7-6.0); RED CELL DISTRIBUTION WIDTH 18.1 % (11.6-16.5); WHITE BLOOD COUNT 6.6 X10^3/uL (3.6-10.0)
[2018-10-30 07:05] LABS: ALANINE AMINOTRANSFERASE 24 Units/L (12-78); ALBUMIN 1.7 g/dL (3.4-5.0); ALKALINE PHOSPHATASE 64 Units/L (46-116); ASPARTATE AMINO TRANSFERASE 25 Units/L (15-37); BLOOD UREA NITROGEN 6 mg/dL (7-18); CALCIUM 7.7 mg/dL (8.5-10.1); CARBON DIOXIDE 23.6 mmol/L (21-32); CHLORIDE 99 mmol/L (98-107); COR CA(FOR HYPOALB) 9.5 mg/dL (8.5-10.1); SODIUM 130 mmol/L (136-145); TOTAL PROTEIN 4.9 g/dL (6.4-8.2); eGFR NON BLACK RACES > 60 (>60)
[2018-10-30] MEDS: MEGACE PO SCH ×2 (09:04→21:10)
[2018-10-30] MEDS: CYMBALTA PO SCH (09:04)
[2018-10-30] MEDS: MILK OF MAGNESIA PO SCH ×4 (09:04→21:10)
[2018-10-30] MEDS: COLACE CAP 100 MG PO SCH ×2 (09:04→21:10)
[2018-10-30] MEDS: FLOMAX PO SCH (09:04)
[2018-10-30] MEDS: CHECK PATCH XX SCH ×2 (09:05→21:21)
[2018-10-30] MEDS: PULMICORT NEB TX 0.5 MG NEB SCH ×2 (09:14→20:29)
[2018-10-30] MEDS: DUONEB 0.5 MG/3 MG NEB PRN (09:15)
[2018-10-30] MEDS: DURAGESIC 75 mcg/HR PATCH TD SCH (11:50)
[2018-10-30] MEDS ORDERED: DUONEB 0.5 MG/3 MG NEB SCH ×2 (14:15→22:00)
--- NOTE | 2018-10-30 14:16 | PCM.PROG ---
Progress Note - Progress Note for Day of Date of Exam: 10/30/18 - Subjective Subjective: WAS ADMITTED FOR INTRACTABLE NECK AND BACK PAIN. HE HAS A HISTORY OF CANCER TO THE LUNGS AND SPINE. TODAY, HE IS ALERT AND ORIENTED, LYING IN BED ON MORNING ROUNDS. HE CONTINUES WITH COMPLAINTS OF UPPER AND LOWER BACK PAIN WELL NECK PAIN. HE REPORTS SLIGHT IMPROVEMENT SINCE YESTERDAY. HE CONTINUES WITH GENERALIZED WEAKNESS AND SOB. PT'S FENTANYL PATCH INCREASED PER DR PHILLIPS ON ROUNDS TUESDAYTO 75MCG. PT HAS PREVIOUSLY BEEN ON PO PERCOCET. PLAN TO D/C DILAUDID AND START PO PERCOCET WITH FENTANYL PATCH FOR PAIN CONTROL AND CXR ORDERED FOR THIS AM. JET NEBS TID TODAY TO HELP WITH SOB AND WHEEZING. - Past Medical Family Social History Past Med/Fam/Surg Hx: No changes since H&P Allergies: Allergies No Known Drug Allergies Allergy (Verified 10/08/18 13:25) - Review of Systems ROS: No change since H&P - Vital Signs and I&O's Vital Signs: Temperature 98.6 F Pulse Rate [Left Brachial] 86 Pulse Rate [Brachial] 105 Pulse Rate 97 Respiratory Rate 20 Blood Pressure [Left Arm] 128/78 Blood Pressure [Right Arm] 115/80 Blood Pressure 103/68 O2 Sat by Pulse Oximetry 93 Intake and Output: Intake & Output 10/28/18 10/29/18 10/30/18 10/31/18 11:59 11:59 11:59 11:59 Intake Total 2200 / 2200 2523 / 2523 2172 / 2172 Output Total 1000 / 1000 1850 / 1850 1550 / 1550 Balance 1200 / 1200 673 / 673 622 / 622 - Physical Exam Oriented: Normal Eyes: Normal Ear: Normal Nose: Normal Throat: Normal Respiratory: Generalized, Diminished Cardiovascular: Tachycardia. negative: S3, S4, Murmur, Edema : Normal Auscultation: Bowel Sounds: Normal Tenderness: Normal Skin: Normal Musculoskeletal: Back:Thoracic, Back:Lumbar, Back:Midline, Tender Psychiatric: Normal Mood Description: Calm Affect: Normal Speech Pattern: Clear, Appropriate - Laboratory and Diagnostics Result Diagrams: 10/30/18 05:15 10/30/18 05:15 Labs: Laboratory WBC 6.6 X10^3/uL (3.6-10.0) 10/30/18 05:15 RBC 2.83 X10^6/uL (4.7-6.0) L 10/30/18 05:15 Hgb 9.2 g/dL (13.5-18.0) L 10/30/18 05:15 Hct 26.9 % (42.0-54.0) L 10/30/18 05:15 MCV 94.9 fL (80.0-100.0) 10/30/18 05:15 MCH 32.5 pg (27.0-34.0) 10/30/18 05:15 MCHC 34.3 g/dL (33.0-35.0) 10/30/18 05:15 RDW 18.1 % (11.6-16.5) H 10/30/18 05:15 Plt Count 134 X10^3/uL (150.0-450.0) L 10/30/18 05:15 MPV 8.4 fL (7.4-11.0) 10/30/18 05:15 Neut % (Auto) 82.1 % (42.0-75.0) H 10/30/18 05:15 Lymph % (Auto) 4.9 % (21.0-51.0) L 10/30/18 05:15 [place] % (Auto) 9.5 % (0.0-13.0) 10/30/18 05:15 Eos % (Auto) 2.9 % (0.9-2.9) 10/30/18 05:15 Baso % (Auto) 0.6 % (0.2-1.0) 10/30/18 05:15 Neut # (Auto) 5.4 x10^3/uL (2.2-4.8) H 10/30/18 05:15 Lymph # (Auto) 0.3 X10^3/uL (1.3-2.9) L 10/30/18 05:15 [place] # (Auto) 0.6 x10^3/uL (0.3-0.8) 10/30/18 05:15 Eos # (Auto) 0.2 x10^3/uL (0.0-0.2) 10/30/18 05:15 Baso # (Auto) 0.0 X10^3/uL (0.0-0.1) 10/30/18 05:15 Absolute Nucleated RBC 0.0 /100WBC 10/30/18 05:15 Sodium 130 mmol/L (136-145) L 10/30/18 05:15 Corrected Sodium TNP 10/30/18 05:15 Potassium 3.6 mmol/L (3.5-5.1) 10/30/18 05:15 Chloride 99 mmol/L (98-107) 10/30/18 05:15 Carbon Dioxide 23.6 mmol/L (21-32) 10/30/18 05:15 BUN 6 mg/dL (7-18) L 10/30/18 05:15 Creatinine 0.40 mg/dL (0.70-1.30) L 10/30/18 05:15 Est GFR (MDRD) Af Amer > 60 (>60) 10/30/18 05:15 Est GFR (MDRD) Non-Af > 60 (>60) 10/30/18 05:15 Glucose 90 mg/dL (65-99) 10/30/18 05:15 Calcium 7.7 mg/dL (8.5-10.1) L 10/30/18 05:15 Corrected Calcium 9.5 mg/dL (8.5-10.1) 10/30/18 05:15 Magnesium 2.6 mg/dL (1.7-2.9) 10/26/18 04:33 Iron 20 ug/dL (50-175) L 10/28/18 12:43 Transferrin 121 mg/dL (202-364) L 10/28/18 12:43 Ferritin 682 ng/mL (26-388) H 10/28/18 12:43 Total Bilirubin 0.30 mg/dL (0.2-1.0) 10/30/18 05:15 AST 25 Units/L (15-37) 10/30/18 05:15 ALT 24 Units/L (12-78) 10/30/18 05:15 Alkaline Phosphatase 64 Units/L (46-116) 10/30/18 05:15 Total Protein 4.9 g/dL (6.4-8.2) L 10/30/18 05:15 Albumin 1.7 g/dL (3.4-5.0) L 10/30/18 05:15 Globulin 3.2 g/dL (2.5-4.5) 10/30/18 05:15 Albumin/Globulin Ratio 0.5 Ratio (1.1-2.1) L 10/30/18 05:15 Vitamin B12 1250 pg/mL (193-986) H 10/28/18 12:43 Folate 19.0 ng/mL (>8.6) 10/28/18 12:43 Specimen Type Clean catch urine 10/23/18 21:34 Urine Color Yellow (YELLOW) 10/23/18 21:34 Urine Appearance Clear (CLEAR) 10/23/18 21:34 Urine pH 6.0 (5.0 - 8.0) 10/23/18 21:34 Ur Specific [place] 1.020 (1.000-1.030) 10/23/18 21:34 Urine Protein 1+ (NEGATIVE) 10/23/18 21:34 Urine Glucose (UA) Negative (NEGATIVE) 10/23/18 21:34 Urine Ketones 1+ (NEGATIVE) 10/23/18 21:34 Urine Occult Blood 3+ (NEGATIVE) 10/23/18 21:34 Urine Nitrite Negative (NEGATIVE) 10/23/18 21:34 Urine Bilirubin Negative (NEGATIVE) 10/23/18 21:34 Urine Urobilinogen Normal (NORMAL) 10/23/18 21:34 Ur Leukocyte Esterase Negative (NEGATIVE) 10/23/18 21:34 Urine RBC 0-2 /HPF (NONE SEEN) 10/23/18 21:34 Urine WBC 0-2 /HPF (NONE SEEN) 10/23/18 21:34 Ur Squamous Epith Cells Rare /HPF (NEGATIVE) 10/23/18 21:34 Amorphous Sediment 1+ /HPF (NEGATIVE) 10/23/18 21:34 Urine Bacteria Negative /HPF (NEGATIVE) 10/23/18 21:34 Urine Mucus Moderate /HPF (NEGATIVE) 10/23/18 21:34 Ur Culture Indicated? No/not indicated 10/23/18 21:34 - Plan (1) Metastatic lung carcinoma Status: Acute Plan: CONTINUE SUPPLEMENTAL O2, RESP THERAPY. CXR AM, PAIN CONTROL. PT TOLERATED, CASE MANAGEMENT CONSULT TO ARRANGE HOME HEALTH UPON D/C. 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
[2018-10-30] MEDS ORDERED: PERCOCET TAB 5/325 MG ONE (15:17)
[2018-10-30] MEDS ORDERED: HEMOCYTE-PLUS PO ONE (15:17)
[2018-10-30] MEDS: PERCOCET TAB 5/325 MG PO PRN ×2 (15:20→21:21)
[2018-10-30] MEDS: HEMOCYTE-PLUS PO SCH (15:20)
--- NOTE | 2018-10-30 15:23 | RAD ---
HISTORY: Shortness of breath. History of lung cancer. Study: Portable chest. Comparison: CT chest and chest x-ray dated October 08, 2018. Findings: The patient is rotated. Stable appearance of a left chest Port-A-Cath. The cardiac silhouette is obscured. Complete opacification of the right lung. Left lung aeration appears unchanged. No obvious pneumothorax. The bony thorax is unremarkable. IMPRESSION: Complete opacification of the right lung. This may represent a large malignant pleural effusion given patient's history of lung cancer. Reported By:
[2018-10-30] MEDS: DUONEB 0.5 MG/3 MG NEB SCH ×2 (16:46→20:29)
[2018-10-31] MEDS: ATIVAN TAB 0.5 MG PO PRN (00:17)
[2018-10-31] MEDS: NS 1000 ML 1,000 ML IV SCH (04:42)
[2018-10-31] MEDS: DUONEB 0.5 MG/3 MG NEB SCH ×6 (05:45→21:19)
[2018-10-31] MEDS: LOVENOX INJ 60 MG SYR SC SCH ×2 (06:02→17:30)
[2018-10-31 06:06] LABS: BASOPHILS % (AUTO) 0.9 % (0.2-1.0); EOSINOPHILS # (AUTO) 0.2 x10^3/uL (0.0-0.2); EOSINOPHILS % (AUTO) 3.3 % (0.9-2.9); HEMATOCRIT 27.2 % (42.0-54.0); HEMOGLOBIN 9.4 g/dL (13.5-18.0); LYMPHOCYTES # (AUTO) 0.3 X10^3/uL (1.3-2.9); LYMPHOCYTES % (AUTO) 5.9 % (21.0-51.0); MEAN CORPUSCULAR HEMOGLOBIN 32.6 pg (27.0-34.0); MEAN CORPUSCULAR HGB CONC 34.5 g/dL (33.0-35.0); MEAN CORPUSCULAR VOLUME 94.6 fL (80.0-100.0); MEAN PLATELET VOLUME 8.3 fL (7.4-11.0); MONOCYTES # (AUTO) 0.5 x10^3/uL (0.3-0.8); MONOCYTES % (AUTO) 9.1 % (0.0-13.0); NEUTROPHILS # (AUTO) 4.3 x10^3/uL (2.2-4.8); NEUTROPHILS % (AUTO) 80.8 % (42.0-75.0); PLATELET COUNT 140 X10^3/uL (150.0-450.0); RED BLOOD COUNT 2.88 X10^6/uL (4.7-6.0); RED CELL DISTRIBUTION WIDTH 18.2 % (11.6-16.5); WHITE BLOOD COUNT 5.3 X10^3/uL (3.6-10.0)
[2018-10-31 06:12] LABS: ALANINE AMINOTRANSFERASE 22 Units/L (12-78); ALBUMIN 1.7 g/dL (3.4-5.0); ALKALINE PHOSPHATASE 61 Units/L (46-116); ASPARTATE AMINO TRANSFERASE 25 Units/L (15-37); BLOOD UREA NITROGEN 7 mg/dL (7-18); CALCIUM 7.6 mg/dL (8.5-10.1); CARBON DIOXIDE 25.2 mmol/L (21-32); CHLORIDE 98 mmol/L (98-107); COR CA(FOR HYPOALB) 9.4 mg/dL (8.5-10.1); CREATININE 0.43 mg/dL (0.70-1.30); SODIUM 130 mmol/L (136-145); eGFR NON BLACK RACES > 60 (>60)
[2018-10-31] MEDS: PULMICORT NEB TX 0.5 MG NEB SCH ×2 (08:52→21:20)
[2018-10-31] MEDS: FLOMAX PO SCH (09:30)
[2018-10-31] MEDS: COLACE CAP 100 MG PO SCH ×2 (09:30→20:40)
[2018-10-31] MEDS: MEGACE PO SCH ×2 (09:30→20:39)
[2018-10-31] MEDS: HEMOCYTE-PLUS PO SCH (09:30)
[2018-10-31] MEDS: CYMBALTA PO SCH (09:30)
[2018-10-31] MEDS: CHECK PATCH XX SCH ×2 (09:31→20:41)
[2018-10-31] MEDS: MILK OF MAGNESIA PO SCH ×4 (09:35→20:40)
[2018-10-31] MEDS: PERCOCET TAB 5/325 MG PO PRN (13:37)
[2018-11-01] MEDS: DUONEB 0.5 MG/3 MG NEB SCH ×5 (00:51→20:03)
[2018-11-01] MEDS: PERCOCET TAB 5/325 MG PO PRN ×2 (01:05→09:43)
[2018-11-01] MEDS: NS 1000 ML 1,000 ML IV SCH ×3 (06:01→20:47)
[2018-11-01 06:06] LABS: BASOPHILS % (AUTO) 0.7 % (0.2-1.0); EOSINOPHILS # (AUTO) 0.2 x10^3/uL (0.0-0.2); EOSINOPHILS % (AUTO) 3.3 % (0.9-2.9); HEMATOCRIT 29.1 % (42.0-54.0); LYMPHOCYTES # (AUTO) 0.4 X10^3/uL (1.3-2.9); LYMPHOCYTES % (AUTO) 7.1 % (21.0-51.0); MEAN CORPUSCULAR HEMOGLOBIN 32.5 pg (27.0-34.0); MEAN CORPUSCULAR HGB CONC 34.3 g/dL (33.0-35.0); MEAN CORPUSCULAR VOLUME 94.7 fL (80.0-100.0); MEAN PLATELET VOLUME 8.1 fL (7.4-11.0); MONOCYTES # (AUTO) 0.6 x10^3/uL (0.3-0.8); MONOCYTES % (AUTO) 11.9 % (0.0-13.0); PLATELET COUNT 157 X10^3/uL (150.0-450.0); RED BLOOD COUNT 3.07 X10^6/uL (4.7-6.0); WHITE BLOOD COUNT 5.2 X10^3/uL (3.6-10.0)
[2018-11-01 06:11] LABS: ALANINE AMINOTRANSFERASE 22 Units/L (12-78); ALBUMIN 1.8 g/dL (3.4-5.0); ALKALINE PHOSPHATASE 65 Units/L (46-116); ASPARTATE AMINO TRANSFERASE 25 Units/L (15-37); BLOOD UREA NITROGEN 8 mg/dL (7-18); CALCIUM 7.7 mg/dL (8.5-10.1); CARBON DIOXIDE 24.4 mmol/L (21-32); CHLORIDE 97 mmol/L (98-107); COR CA(FOR HYPOALB) 9.5 mg/dL (8.5-10.1); CREATININE 0.47 mg/dL (0.70-1.30); SODIUM 128 mmol/L (136-145); TOTAL PROTEIN 5.2 g/dL (6.4-8.2); eGFR NON BLACK RACES > 60 (>60)
[2018-11-01] MEDS: LOVENOX INJ 60 MG SYR SC SCH ×2 (06:23→17:32)
[2018-11-01] MEDS: PULMICORT NEB TX 0.5 MG NEB SCH ×2 (08:03→20:03)
[2018-11-01] MEDS: FLOMAX PO SCH (09:43)
[2018-11-01] MEDS: MEGACE PO SCH ×2 (09:43→20:24)
[2018-11-01] MEDS: COLACE CAP 100 MG PO SCH ×2 (09:43→20:24)
[2018-11-01] MEDS: HEMOCYTE-PLUS PO SCH (09:44)
[2018-11-01] MEDS ORDERED: DULCOLAX SUPPOSITORY 10 MG RECTAL ONE (09:44)
[2018-11-01] MEDS: CHECK PATCH XX SCH ×2 (09:44→20:24)
[2018-11-01] MEDS: MILK OF MAGNESIA PO SCH ×4 (09:44→20:24)
[2018-11-01] MEDS: CYMBALTA PO SCH (09:51)
[2018-11-01] MEDS: ATIVAN TAB 0.5 MG PO PRN (15:44)
--- NOTE | 2018-11-01 17:54 | PCM.PROG ---
Progress Note - Progress Note for Day of Date of Exam: 11/01/18 - Subjective Subjective: WAS ADMITTED FOR INTRACTABLE NECK AND BACK PAIN. HE HAS A HISTORY OF CANCER TO THE LUNGS AND SPINE. TODAY, HE IS ALERT AND ORIENTED, LYING IN BED ON MORNING ROUNDS. HE CONTINUES WITH COMPLAINTS OF UPPER AND LOWER BACK PAIN WELL NECK PAIN. HE REPORTS SLIGHT IMPROVEMENT SINCE YESTERDAY. HE CONTINUES WITH GENERALIZED WEAKNESS AND SOB. PT'S FENTANYL PATCH INCREASED PER DR PHILLIPS ON ROUNDS TUESDAYTO 75MCG. PT HAS PREVIOUSLY BEEN ON PO PERCOCET. D/C DILAUDID AND START PO PERCOCET WITH FENTANYL PATCH FOR PAIN CONTROL AND PT REPORTS "PRETTY CONTROLLED" JUST CONTINUES WITH SOB AND DIFFUSE WEAKNESS. DISCUSSED PLAN FOR DC HOME, FAMILY ASKING FOR HOME HEALTH. PT STATES HE IS TOO WEAK TO GO HOME AND ASKING FOR REHAB PLACEMENT - Past Medical Family Social History Past Med/Fam/Surg Hx: No changes since H&P Allergies: Allergies No Known Drug Allergies Allergy (Verified 10/08/18 13:25) - Review of Systems ROS: No change since H&P - Vital Signs and I&O's Vital Signs: Temperature 98.4 F Pulse Rate [Left Brachial] 105 Pulse Rate [Brachial] 105 Pulse Rate 98 Respiratory Rate 20 Blood Pressure [Left Arm] 122/72 Blood Pressure [Right Arm] 115/80 Blood Pressure 103/68 O2 Sat by Pulse Oximetry 93 Intake and Output: Intake & Output 10/30/18 10/31/18 11/01/18 11/02/18 11:59 11:59 11:59 11:59 Intake Total 2172 / 2172 2050 / 2050 1890 / 1890 900 / 900 Output Total 1550 / 1550 1075 / 1075 1325 / 1325 700 / 700 Balance 622 / 622 975 / 975 565 / 565 200 / 200 - Physical Exam Oriented: Normal Eyes: Normal Ear: Normal Nose: Normal Throat: Normal Respiratory: Generalized, Diminished Cardiovascular: Tachycardia. negative: S3, S4, Murmur, Edema : Normal Auscultation: Bowel Sounds: Normal Tenderness: Normal Skin: Normal Musculoskeletal: Back:Thoracic, Back:Lumbar, Back:Midline, Tender Psychiatric: Normal Mood Description: Calm Affect: Normal Speech Pattern: Clear, Appropriate - Laboratory and Diagnostics Result Diagrams: 11/01/18 05:02 11/01/18 05:02 Labs: Laboratory WBC 5.2 X10^3/uL (3.6-10.0) 11/01/18 05:02 RBC 3.07 X10^6/uL (4.7-6.0) L 11/01/18 05:02 Hgb 10.0 g/dL (13.5-18.0) L 11/01/18 05:02 Hct 29.1 % (42.0-54.0) L 11/01/18 05:02 MCV 94.7 fL (80.0-100.0) 11/01/18 05:02 MCH 32.5 pg (27.0-34.0) 11/01/18 05:02 MCHC 34.3 g/dL (33.0-35.0) 11/01/18 05:02 RDW 18.0 % (11.6-16.5) H 11/01/18 05:02 Plt Count 157 X10^3/uL (150.0-450.0) 11/01/18 05:02 MPV 8.1 fL (7.4-11.0) 11/01/18 05:02 Neut % (Auto) 77.0 % (42.0-75.0) H 11/01/18 05:02 Lymph % (Auto) 7.1 % (21.0-51.0) L 11/01/18 05:02 [place] % (Auto) 11.9 % (0.0-13.0) 11/01/18 05:02 Eos % (Auto) 3.3 % (0.9-2.9) H 11/01/18 05:02 Baso % (Auto) 0.7 % (0.2-1.0) 11/01/18 05:02 Neut # (Auto) 4.0 x10^3/uL (2.2-4.8) 11/01/18 05:02 Lymph # (Auto) 0.4 X10^3/uL (1.3-2.9) L 11/01/18 05:02 [place] # (Auto) 0.6 x10^3/uL (0.3-0.8) 11/01/18 05:02 Eos # (Auto) 0.2 x10^3/uL (0.0-0.2) 11/01/18 05:02 Baso # (Auto) 0.0 X10^3/uL (0.0-0.1) 11/01/18 05:02 Absolute Nucleated RBC 0.0 /100WBC 11/01/18 05:02 Sodium 128 mmol/L (136-145) L 11/01/18 05:02 Corrected Sodium TNP 11/01/18 05:02 Potassium 4.0 mmol/L (3.5-5.1) 11/01/18 05:02 Chloride 97 mmol/L (98-107) L 11/01/18 05:02 Carbon Dioxide 24.4 mmol/L (21-32) 11/01/18 05:02 BUN 8 mg/dL (7-18) 11/01/18 05:02 Creatinine 0.47 mg/dL (0.70-1.30) L 11/01/18 05:02 Est GFR (MDRD) Af Amer > 60 (>60) 11/01/18 05:02 Est GFR (MDRD) Non-Af > 60 (>60) 11/01/18 05:02 Glucose 97 mg/dL (65-99) 11/01/18 05:02 Calcium 7.7 mg/dL (8.5-10.1) L 11/01/18 05:02 Corrected Calcium 9.5 mg/dL (8.5-10.1) 11/01/18 05:02 Magnesium 2.6 mg/dL (1.7-2.9) 10/26/18 04:33 Iron 20 ug/dL (50-175) L 10/28/18 12:43 Transferrin 121 mg/dL (202-364) L 10/28/18 12:43 Ferritin 682 ng/mL (26-388) H 10/28/18 12:43 Total Bilirubin 0.40 mg/dL (0.2-1.0) 11/01/18 05:02 AST 25 Units/L (15-37) 11/01/18 05:02 ALT 22 Units/L (12-78) 11/01/18 05:02 Alkaline Phosphatase 65 Units/L (46-116) 11/01/18 05:02 Total Protein 5.2 g/dL (6.4-8.2) L 11/01/18 05:02 Albumin 1.8 g/dL (3.4-5.0) L 11/01/18 05:02 Globulin 3.4 g/dL (2.5-4.5) 11/01/18 05:02 Albumin/Globulin Ratio 0.5 Ratio (1.1-2.1) L 11/01/18 05:02 Vitamin B12 1250 pg/mL (193-986) H 10/28/18 12:43 Folate 19.0 ng/mL (>8.6) 10/28/18 12:43 Specimen Type Clean catch urine 10/23/18 21:34 Urine Color Yellow (YELLOW) 10/23/18 21:34 Urine Appearance Clear (CLEAR) 10/23/18 21:34 Urine pH 6.0 (5.0 - 8.0) 10/23/18 21:34 Ur Specific [place] 1.020 (1.000-1.030) 10/23/18 21:34 Urine Protein 1+ (NEGATIVE) 10/23/18 21:34 Urine Glucose (UA) Negative (NEGATIVE) 10/23/18 21:34 Urine Ketones 1+ (NEGATIVE) 10/23/18 21:34 Urine Occult Blood 3+ (NEGATIVE) 10/23/18 21:34 Urine Nitrite Negative (NEGATIVE) 10/23/18 21:34 Urine Bilirubin Negative (NEGATIVE) 10/23/18 21:34 Urine Urobilinogen Normal (NORMAL) 10/23/18 21:34 Ur Leukocyte Esterase Negative (NEGATIVE) 10/23/18 21:34 Urine RBC 0-2 /HPF (NONE SEEN) 10/23/18 21:34 Urine WBC 0-2 /HPF (NONE SEEN) 10/23/18 21:34 Ur Squamous Epith Cells Rare /HPF (NEGATIVE) 10/23/18 21:34 Amorphous Sediment 1+ /HPF (NEGATIVE) 10/23/18 21:34 Urine Bacteria Negative /HPF (NEGATIVE) 10/23/18 21:34 Urine Mucus Moderate /HPF (NEGATIVE) 10/23/18 21:34 Ur Culture Indicated? No/not indicated 10/23/18 21:34 - Plan (1) Metastatic lung carcinoma Status: Acute Plan: CONTINUE SUPPLEMENTAL O2, RESP THERAPY. CXR AM, PAIN CONTROL. PT TOLERATED, CASE MANAGEMENT CONSULT [facility] PLACEMENT (2) Metastatic cancer to bone Status: Acute (3) SOB (shortness of breath) Status: Acute (4) COPD (chronic obstructive pulmonary disease) Status: Acute (5) Anemia Status: Acute (6) Carcinoma in situ of lung Status: Acute Qualifiers: Laterality: unspecified laterality Qualified Code(s): D02.20 - Carcinoma in situ of unspecified bronchus and lung
[2018-11-02] MEDS: DUONEB 0.5 MG/3 MG NEB SCH ×6 (01:06→21:19)
[2018-11-02] MEDS: PERCOCET TAB 5/325 MG PO PRN ×3 (04:14→20:34)
[2018-11-02] MEDS: LOVENOX INJ 60 MG SYR SC SCH ×2 (05:08→17:59)
[2018-11-02 06:02] LABS: BASOPHILS % (AUTO) 0.6 % (0.2-1.0); EOSINOPHILS # (AUTO) 0.1 x10^3/uL (0.0-0.2); EOSINOPHILS % (AUTO) 2.5 % (0.9-2.9); HEMATOCRIT 29.1 % (42.0-54.0); HEMOGLOBIN 9.8 g/dL (13.5-18.0); LYMPHOCYTES # (AUTO) 0.4 X10^3/uL (1.3-2.9); LYMPHOCYTES % (AUTO) 8.6 % (21.0-51.0); MEAN CORPUSCULAR HEMOGLOBIN 31.9 pg (27.0-34.0); MEAN CORPUSCULAR HGB CONC 33.7 g/dL (33.0-35.0); MEAN CORPUSCULAR VOLUME 94.6 fL (80.0-100.0); MEAN PLATELET VOLUME 8.4 fL (7.4-11.0); MONOCYTES # (AUTO) 0.6 x10^3/uL (0.3-0.8); MONOCYTES % (AUTO) 12.8 % (0.0-13.0); NEUTROPHILS # (AUTO) 3.5 x10^3/uL (2.2-4.8); NEUTROPHILS % (AUTO) 75.5 % (42.0-75.0); PLATELET COUNT 167 X10^3/uL (150.0-450.0); RED BLOOD COUNT 3.07 X10^6/uL (4.7-6.0); RED CELL DISTRIBUTION WIDTH 17.9 % (11.6-16.5); WHITE BLOOD COUNT 4.6 X10^3/uL (3.6-10.0)
[2018-11-02 06:17] LABS: ALANINE AMINOTRANSFERASE 20 Units/L (12-78); ALBUMIN 1.7 g/dL (3.4-5.0); ALKALINE PHOSPHATASE 70 Units/L (46-116); ASPARTATE AMINO TRANSFERASE 30 Units/L (15-37); BLOOD UREA NITROGEN 7 mg/dL (7-18); CALCIUM 7.7 mg/dL (8.5-10.1); CARBON DIOXIDE 21.6 mmol/L (21-32); CHLORIDE 97 mmol/L (98-107); COR CA(FOR HYPOALB) 9.5 mg/dL (8.5-10.1); CREATININE 0.43 mg/dL (0.70-1.30); SODIUM 129 mmol/L (136-145); TOTAL PROTEIN 5.2 g/dL (6.4-8.2); eGFR NON BLACK RACES > 60 (>60)
[2018-11-02] MEDS: NS 1000 ML 1,000 ML IV SCH ×2 (08:21→20:35)
[2018-11-02] MEDS: PULMICORT NEB TX 0.5 MG NEB SCH ×2 (08:42→21:19)
[2018-11-02] MEDS: HEMOCYTE-PLUS PO SCH (09:35)
[2018-11-02] MEDS: COLACE CAP 100 MG PO SCH ×2 (09:35→20:34)
[2018-11-02] MEDS: MEGACE PO SCH ×2 (09:35→20:35)
[2018-11-02] MEDS: FLOMAX PO SCH (09:35)
[2018-11-02] MEDS: CYMBALTA PO SCH (09:39)
[2018-11-02] MEDS: MILK OF MAGNESIA PO SCH ×4 (09:40→20:35)
[2018-11-02] MEDS: CHECK PATCH XX SCH ×2 (09:44→20:35)
[2018-11-02] MEDS: DURAGESIC 75 mcg/HR PATCH TD SCH (10:15)
[2018-11-02] MEDS: MAALOX or MYLANTA PO PRN (15:19)
[2018-11-03] MEDS: DUONEB 0.5 MG/3 MG NEB SCH ×6 (00:45→21:17)
[2018-11-03] MEDS: PERCOCET TAB 5/325 MG PO PRN ×4 (03:01→21:56)
[2018-11-03] MEDS: LOVENOX INJ 60 MG SYR SC SCH ×2 (05:07→17:17)
[2018-11-03 05:27] LABS: BASOPHILS % (AUTO) 0.6 % (0.2-1.0); EOSINOPHILS # (AUTO) 0.1 x10^3/uL (0.0-0.2); EOSINOPHILS % (AUTO) 2.8 % (0.9-2.9); HEMATOCRIT 28.7 % (42.0-54.0); HEMOGLOBIN 9.8 g/dL (13.5-18.0); LYMPHOCYTES # (AUTO) 0.5 X10^3/uL (1.3-2.9); LYMPHOCYTES % (AUTO) 10.3 % (21.0-51.0); MEAN CORPUSCULAR HEMOGLOBIN 32.1 pg (27.0-34.0); MEAN CORPUSCULAR HGB CONC 34.1 g/dL (33.0-35.0); MEAN PLATELET VOLUME 8.1 fL (7.4-11.0); MONOCYTES # (AUTO) 0.7 x10^3/uL (0.3-0.8); MONOCYTES % (AUTO) 14.2 % (0.0-13.0); NEUTROPHILS # (AUTO) 3.7 x10^3/uL (2.2-4.8); NEUTROPHILS % (AUTO) 72.1 % (42.0-75.0); PLATELET COUNT 191 X10^3/uL (150.0-450.0); RED BLOOD COUNT 3.06 X10^6/uL (4.7-6.0); RED CELL DISTRIBUTION WIDTH 18.3 % (11.6-16.5); WHITE BLOOD COUNT 5.1 X10^3/uL (3.6-10.0)
[2018-11-03 05:38] LABS: ALANINE AMINOTRANSFERASE 20 Units/L (12-78); ALBUMIN 1.6 g/dL (3.4-5.0); ALKALINE PHOSPHATASE 73 Units/L (46-116); ASPARTATE AMINO TRANSFERASE 24 Units/L (15-37); BLOOD UREA NITROGEN 8 mg/dL (7-18); CALCIUM 7.4 mg/dL (8.5-10.1); CARBON DIOXIDE 22.4 mmol/L (21-32); CHLORIDE 100 mmol/L (98-107); COR CA(FOR HYPOALB) 9.3 mg/dL (8.5-10.1); CREATININE 0.46 mg/dL (0.70-1.30); SODIUM 132 mmol/L (136-145); eGFR NON BLACK RACES > 60 (>60)
[2018-11-03] MEDS: CYMBALTA PO SCH (09:07)
[2018-11-03] MEDS: K-DUR TAB 20 MEQ PO PRN (09:07)
[2018-11-03] MEDS: FLOMAX PO SCH (09:07)
[2018-11-03] MEDS: COLACE CAP 100 MG PO SCH ×2 (09:07→21:57)
[2018-11-03] MEDS: HEMOCYTE-PLUS PO SCH (09:07)
[2018-11-03] MEDS: MILK OF MAGNESIA PO SCH ×4 (09:08→21:57)
[2018-11-03] MEDS: CHECK PATCH XX SCH ×2 (09:08→21:00)
[2018-11-03] MEDS: MEGACE PO SCH ×2 (09:08→21:56)
[2018-11-03] MEDS: NS 1000 ML 1,000 ML IV SCH ×2 (09:09→17:17)
[2018-11-03] MEDS: PULMICORT NEB TX 0.5 MG NEB SCH ×2 (09:11→21:26)
--- NOTE | 2018-11-03 15:40 | PCM.PROG ---
Progress Note - Progress Note for Day of Date of Exam: 11/03/18 - Subjective Subjective: WAS ADMITTED FOR INTRACTABLE NECK AND BACK PAIN. HE HAS A HISTORY OF CANCER TO THE LUNGS AND SPINE. PT PAIN IS CURRENTLY STABLE WITH FENTANYL PATCH AND PERCOCET. PT CONTINUES WITH SEVERE WEAKNESS, USING BEDPAN. PT AND FAMILY NOW REFUSING FOR HOSPICE AND HOME HEALTH. CASE MANAGEMENT WORKING FOR [facility] AT THIS TIME. - Past Medical Family Social History Past Med/Fam/Surg Hx: No changes since H&P Allergies: Allergies No Known Drug Allergies Allergy (Verified 10/08/18 13:25) - Review of Systems ROS: No change since H&P - Vital Signs and I&O's Vital Signs: Temperature 98.4 F Pulse Rate [Left Brachial] 108 Pulse Rate [Brachial] 105 Pulse Rate 105 Respiratory Rate 18 Blood Pressure [Left Arm] 104/70 Blood Pressure [Right Arm] 115/80 Blood Pressure 103/68 O2 Sat by Pulse Oximetry 92 Intake and Output: Intake & Output 11/01/18 11/02/18 11/03/18 11/04/18 11:59 11:59 11:59 11:59 Intake Total 1890 / 1890 202 / 2024 2350 / 2350 Output Total 1325 / 1325 1700 / 1700 2049 / 2049 Balance 565 / 565 325 / 325 300 / 300 - Physical Exam Oriented: Normal Eyes: Normal Ear: Normal Nose: Normal Throat: Normal Respiratory: Generalized, Diminished Cardiovascular: Tachycardia. negative: S3, S4, Murmur, Edema : Normal Auscultation: Bowel Sounds: Normal Tenderness: Normal Skin: Normal Musculoskeletal: Back:Thoracic, Back:Lumbar, Back:Midline, Tender Psychiatric: Normal Mood Description: Calm Affect: Normal Speech Pattern: Clear, Appropriate - Laboratory and Diagnostics Result Diagrams: 11/03/18 04:40 11/03/18 04:40 Labs: Laboratory WBC 5.1 X10^3/uL (3.6-10.0) 11/03/18 04:40 RBC 3.06 X10^6/uL (4.7-6.0) L 11/03/18 04:40 Hgb 9.8 g/dL (13.5-18.0) L 11/03/18 04:40 Hct 28.7 % (42.0-54.0) L 11/03/18 04:40 MCV 94.0 fL (80.0-100.0) 11/03/18 04:40 MCH 32.1 pg (27.0-34.0) 11/03/18 04:40 MCHC 34.1 g/dL (33.0-35.0) 11/03/18 04:40 RDW 18.3 % (11.6-16.5) H 11/03/18 04:40 Plt Count 191 X10^3/uL (150.0-450.0) 11/03/18 04:40 MPV 8.1 fL (7.4-11.0) 11/03/18 04:40 Neut % (Auto) 72.1 % (42.0-75.0) 11/03/18 04:40 Lymph % (Auto) 10.3 % (21.0-51.0) L 11/03/18 04:40 Heard % (Auto) 14.2 % (0.0-13.0) H 11/03/18 04:40 Eos % (Auto) 2.8 % (0.9-2.9) 11/03/18 04:40 Baso % (Auto) 0.6 % (0.2-1.0) 11/03/18 04:40 Neut # (Auto) 3.7 x10^3/uL (2.2-4.8) 11/03/18 04:40 Lymph # (Auto) 0.5 X10^3/uL (1.3-2.9) L 11/03/18 04:40 Heard # (Auto) 0.7 x10^3/uL (0.3-0.8) 11/03/18 04:40 Eos # (Auto) 0.1 x10^3/uL (0.0-0.2) 11/03/18 04:40 Baso # (Auto) 0.0 X10^3/uL (0.0-0.1) 11/03/18 04:40 Absolute Nucleated RBC 0.0 /100WBC 11/03/18 04:40 Sodium 132 mmol/L (136-145) L 11/03/18 04:40 Corrected Sodium TNP 11/03/18 04:40 Potassium 3.8 mmol/L (3.5-5.1) 11/03/18 04:40 Chloride 100 mmol/L (98-107) 11/03/18 04:40 Carbon Dioxide 22.4 mmol/L (21-32) 11/03/18 04:40 BUN 8 mg/dL (7-18) 11/03/18 04:40 Creatinine 0.46 mg/dL (0.70-1.30) L 11/03/18 04:40 Est GFR (MDRD) Af Amer > 60 (>60) 11/03/18 04:40 Est GFR (MDRD) Non-Af > 60 (>60) 11/03/18 04:40 Glucose 96 mg/dL (65-99) 11/03/18 04:40 Calcium 7.4 mg/dL (8.5-10.1) L 11/03/18 04:40 Corrected Calcium 9.3 mg/dL (8.5-10.1) 11/03/18 04:40 Magnesium 2.6 mg/dL (1.7-2.9) 10/26/18 04:33 Iron 20 ug/dL (50-175) L 10/28/18 12:43 Transferrin 121 mg/dL (202-364) L 10/28/18 12:43 Ferritin 682 ng/mL (26-388) H 10/28/18 12:43 Total Bilirubin 0.30 mg/dL (0.2-1.0) 11/03/18 04:40 AST 24 Units/L (15-37) 11/03/18 04:40 ALT 20 Units/L (12-78) 11/03/18 04:40 Alkaline Phosphatase 73 Units/L (46-116) 11/03/18 04:40 Total Protein 5.0 g/dL (6.4-8.2) L 11/03/18 04:40 Albumin 1.6 g/dL (3.4-5.0) L 11/03/18 04:40 Globulin 3.4 g/dL (2.5-4.5) 11/03/18 04:40 Albumin/Globulin Ratio 0.5 Ratio (1.1-2.1) L 11/03/18 04:40 Vitamin B12 1250 pg/mL (193-986) H 10/28/18 12:43 Folate 19.0 ng/mL (>8.6) 10/28/18 12:43 Specimen Type Clean catch urine 10/23/18 21:34 Urine Color Yellow (YELLOW) 10/23/18 21:34 Urine Appearance Clear (CLEAR) 10/23/18 21:34 Urine pH 6.0 (5.0 - 8.0) 10/23/18 21:34 Ur Specific [place] 1.020 (1.000-1.030) 10/23/18 21:34 Urine Protein 1+ (NEGATIVE) 10/23/18 21:34 Urine Glucose (UA) Negative (NEGATIVE) 10/23/18 21:34 Urine Ketones 1+ (NEGATIVE) 10/23/18 21:34 Urine Occult Blood 3+ (NEGATIVE) 10/23/18 21:34 Urine Nitrite Negative (NEGATIVE) 10/23/18 21:34 Urine Bilirubin Negative (NEGATIVE) 10/23/18 21:34 Urine Urobilinogen Normal (NORMAL) 10/23/18 21:34 Ur Leukocyte Esterase Negative (NEGATIVE) 10/23/18 21:34 Urine RBC 0-2 /HPF (NONE SEEN) 10/23/18 21:34 Urine WBC 0-2 /HPF (NONE SEEN) 10/23/18 21:34 Ur Squamous Epith Cells Rare /HPF (NEGATIVE) 10/23/18 21:34 Amorphous Sediment 1+ /HPF (NEGATIVE) 10/23/18 21:34 Urine Bacteria Negative /HPF (NEGATIVE) 10/23/18 21:34 Urine Mucus Moderate /HPF (NEGATIVE) 10/23/18 21:34 Ur Culture Indicated? No/not indicated 10/23/18 21:34 - Plan (1) Metastatic lung carcinoma Status: Acute Plan: CONTINUE SUPPLEMENTAL O2, RESP THERAPY. PAIN CONTROL. PT TOLERATED, CASE MANAGEMENT CONSULT [facility] (2) Metastatic cancer to bone Status: Acute (3) SOB (shortness of breath) Status: Acute (4) COPD (chronic obstructive pulmonary disease) Status: Acute (5) Anemia Status: Acute (6) Carcinoma in situ of lung Status: Acute Qualifiers: Laterality: unspecified laterality Qualified Code(s): D02.20 - Carcinoma in situ of unspecified bronchus and lung
[2018-11-03] MEDS: ATIVAN TAB 0.5 MG PO PRN (22:05)
[2018-11-04] MEDS: NS 1000 ML 1,000 ML IV SCH ×2 (00:52→11:51)
[2018-11-04] MEDS: DUONEB 0.5 MG/3 MG NEB SCH ×7 (01:55→20:10)
[2018-11-04] MEDS: TORADOL 30 MG VIAL IVP PRN ×4 (03:53→22:30)
[2018-11-04] MEDS: PERCOCET TAB 5/325 MG PO PRN ×4 (04:49→22:33)
[2018-11-04] MEDS: LOVENOX INJ 60 MG SYR SC SCH ×2 (05:04→18:16)
[2018-11-04 07:13] LABS: ALANINE AMINOTRANSFERASE 23 Units/L (12-78); ALBUMIN 1.6 g/dL (3.4-5.0); ALKALINE PHOSPHATASE 82 Units/L (46-116); ASPARTATE AMINO TRANSFERASE 31 Units/L (15-37); BLOOD UREA NITROGEN 9 mg/dL (7-18); CALCIUM 7.7 mg/dL (8.5-10.1); CARBON DIOXIDE 22.2 mmol/L (21-32); CHLORIDE 100 mmol/L (98-107); COR CA(FOR HYPOALB) 9.6 mg/dL (8.5-10.1); CREATININE 0.43 mg/dL (0.70-1.30); SODIUM 132 mmol/L (136-145); TOTAL PROTEIN 5.1 g/dL (6.4-8.2); eGFR NON BLACK RACES > 60 (>60)
[2018-11-04 07:15] LABS: BASOPHILS % (AUTO) 0.5 % (0.2-1.0); EOSINOPHILS # (AUTO) 0.2 x10^3/uL (0.0-0.2); EOSINOPHILS % (AUTO) 2.9 % (0.9-2.9); HEMOGLOBIN 10.4 g/dL (13.5-18.0); LYMPHOCYTES # (AUTO) 0.9 X10^3/uL (1.3-2.9); LYMPHOCYTES % (AUTO) 13.7 % (21.0-51.0); MEAN CORPUSCULAR HEMOGLOBIN 31.9 pg (27.0-34.0); MEAN CORPUSCULAR HGB CONC 33.4 g/dL (33.0-35.0); MEAN CORPUSCULAR VOLUME 95.5 fL (80.0-100.0); MEAN PLATELET VOLUME 8.1 fL (7.4-11.0); MONOCYTES # (AUTO) 0.9 x10^3/uL (0.3-0.8); MONOCYTES % (AUTO) 13.6 % (0.0-13.0); NEUTROPHILS # (AUTO) 4.4 x10^3/uL (2.2-4.8); NEUTROPHILS % (AUTO) 69.3 % (42.0-75.0); PLATELET COUNT 210 X10^3/uL (150.0-450.0); RED BLOOD COUNT 3.25 X10^6/uL (4.7-6.0); RED CELL DISTRIBUTION WIDTH 17.9 % (11.6-16.5); WHITE BLOOD COUNT 6.4 X10^3/uL (3.6-10.0)
[2018-11-04] MEDS: COLACE CAP 100 MG PO SCH ×2 (08:09→21:03)
[2018-11-04] MEDS: CHECK PATCH XX SCH ×2 (08:09→21:52)
[2018-11-04] MEDS: MILK OF MAGNESIA PO SCH ×4 (08:09→21:03)
[2018-11-04] MEDS: HEMOCYTE-PLUS PO SCH (08:09)
[2018-11-04] MEDS: FLOMAX PO SCH (08:09)
[2018-11-04] MEDS: MEGACE PO SCH ×2 (08:09→21:03)
[2018-11-04] MEDS: CYMBALTA PO SCH (08:13)
[2018-11-04] MEDS: PULMICORT NEB TX 0.5 MG NEB SCH ×2 (09:24→20:10)
[2018-11-04] MEDS: ATIVAN TAB 0.5 MG PO SCH (22:33)
[2018-11-05] MEDS: PERCOCET TAB 5/325 MG PO PRN ×4 (01:00→19:08)
[2018-11-05] MEDS: NS 1000 ML 1,000 ML IV SCH ×3 (01:31→13:38)
[2018-11-05] MEDS: DUONEB 0.5 MG/3 MG NEB SCH ×8 (01:38→21:19)
[2018-11-05 05:20] LABS: BASOPHILS % (AUTO) 0.4 % (0.2-1.0); EOSINOPHILS # (AUTO) 0.2 x10^3/uL (0.0-0.2); EOSINOPHILS % (AUTO) 3.9 % (0.9-2.9); HEMATOCRIT 30.3 % (42.0-54.0); HEMOGLOBIN 10.1 g/dL (13.5-18.0); LYMPHOCYTES # (AUTO) 0.8 X10^3/uL (1.3-2.9); LYMPHOCYTES % (AUTO) 13.1 % (21.0-51.0); MEAN CORPUSCULAR HEMOGLOBIN 31.8 pg (27.0-34.0); MEAN CORPUSCULAR HGB CONC 33.4 g/dL (33.0-35.0); MEAN CORPUSCULAR VOLUME 95.1 fL (80.0-100.0); MEAN PLATELET VOLUME 7.9 fL (7.4-11.0); MONOCYTES # (AUTO) 0.8 x10^3/uL (0.3-0.8); NEUTROPHILS # (AUTO) 4.3 x10^3/uL (2.2-4.8); NEUTROPHILS % (AUTO) 69.6 % (42.0-75.0); PLATELET COUNT 242 X10^3/uL (150.0-450.0); RED BLOOD COUNT 3.18 X10^6/uL (4.7-6.0); RED CELL DISTRIBUTION WIDTH 18.1 % (11.6-16.5); WHITE BLOOD COUNT 6.2 X10^3/uL (3.6-10.0)
[2018-11-05 05:40] LABS: ALANINE AMINOTRANSFERASE 24 Units/L (12-78); ALBUMIN 1.6 g/dL (3.4-5.0); ALKALINE PHOSPHATASE 84 Units/L (46-116); ASPARTATE AMINO TRANSFERASE 29 Units/L (15-37); BLOOD UREA NITROGEN 14 mg/dL (7-18); CALCIUM 7.3 mg/dL (8.5-10.1); CARBON DIOXIDE 21.6 mmol/L (21-32); CHLORIDE 102 mmol/L (98-107); COR CA(FOR HYPOALB) 9.2 mg/dL (8.5-10.1); CREATININE 0.49 mg/dL (0.70-1.30); SODIUM 133 mmol/L (136-145); eGFR NON BLACK RACES > 60 (>60)
[2018-11-05] MEDS: LOVENOX INJ 60 MG SYR SC SCH ×2 (06:39→17:28)
[2018-11-05] MEDS: PULMICORT NEB TX 0.5 MG NEB SCH ×3 (07:36→21:19)
[2018-11-05] MEDS: ATIVAN TAB 0.5 MG PO SCH ×2 (08:17→21:22)
[2018-11-05] MEDS: COLACE CAP 100 MG PO SCH ×2 (08:17→21:22)
[2018-11-05] MEDS: CHECK PATCH XX SCH ×2 (08:18→21:24)
[2018-11-05] MEDS: HEMOCYTE-PLUS PO SCH (08:18)
[2018-11-05] MEDS: MILK OF MAGNESIA PO SCH ×5 (08:18→21:23)
[2018-11-05] MEDS: FLOMAX PO SCH (08:18)
[2018-11-05] MEDS: CYMBALTA PO SCH (08:22)
[2018-11-05] MEDS: ZOFRAN INJ 4 MG VIAL IVP PRN (08:22)
[2018-11-05] MEDS: MEGACE PO SCH ×2 (08:22→21:22)
[2018-11-05] MEDS: DURAGESIC 75 mcg/HR PATCH TD SCH (11:17)
[2018-11-05] MEDS: SOLU-Medrol 40 MG VIAL IVP SCH ×3 (13:00→21:31)
[2018-11-05] MEDS: MAALOX or MYLANTA PO PRN (13:00)
[2018-11-05] MEDS ORDERED: DULCOLAX SUPPOSITORY 10 MG RECTAL ONE (14:38)
[2018-11-06] MEDS: DUONEB 0.5 MG/3 MG NEB SCH ×4 (01:02→12:00)
[2018-11-06] MEDS: PERCOCET TAB 5/325 MG PO PRN ×3 (01:50→16:27)
[2018-11-06] MEDS: NS 1000 ML 1,000 ML IV SCH ×2 (05:38)
[2018-11-06] MEDS: SOLU-Medrol 40 MG VIAL IVP SCH (05:39)
[2018-11-06 06:12] LABS: BASOPHILS % (AUTO) 0.3 % (0.2-1.0); EOSINOPHILS % (AUTO) 0.1 % (0.9-2.9); HEMATOCRIT 30.5 % (42.0-54.0); HEMOGLOBIN 10.4 g/dL (13.5-18.0); LYMPHOCYTES # (AUTO) 0.9 X10^3/uL (1.3-2.9); LYMPHOCYTES % (AUTO) 13.9 % (21.0-51.0); MEAN CORPUSCULAR HEMOGLOBIN 31.9 pg (27.0-34.0); MEAN PLATELET VOLUME 7.8 fL (7.4-11.0); MONOCYTES # (AUTO) 0.5 x10^3/uL (0.3-0.8); MONOCYTES % (AUTO) 7.4 % (0.0-13.0); NEUTROPHILS # (AUTO) 5.3 x10^3/uL (2.2-4.8); NEUTROPHILS % (AUTO) 78.3 % (42.0-75.0); PLATELET COUNT 296 X10^3/uL (150.0-450.0); RED BLOOD COUNT 3.25 X10^6/uL (4.7-6.0); RED CELL DISTRIBUTION WIDTH 18.3 % (11.6-16.5); WHITE BLOOD COUNT 6.8 X10^3/uL (3.6-10.0)
[2018-11-06 06:19] LABS: ALANINE AMINOTRANSFERASE 24 Units/L (12-78); ALBUMIN 1.6 g/dL (3.4-5.0); ALKALINE PHOSPHATASE 91 Units/L (46-116); ASPARTATE AMINO TRANSFERASE 25 Units/L (15-37); BLOOD UREA NITROGEN 11 mg/dL (7-18); CALCIUM 7.6 mg/dL (8.5-10.1); CARBON DIOXIDE 21.5 mmol/L (21-32); CHLORIDE 102 mmol/L (98-107); COR CA(FOR HYPOALB) 9.5 mg/dL (8.5-10.1); COR NA(FOR HYPERGLY) 133 mmol/L (136-145); CREATININE 0.47 mg/dL (0.70-1.30); SODIUM 133 mmol/L (136-145); TOTAL PROTEIN 5.3 g/dL (6.4-8.2); eGFR NON BLACK RACES > 60 (>60)
[2018-11-06] MEDS ORDERED: LOVENOX INJ 60 MG SYR SC SCH (09:00)
[2018-11-06] MEDS: HEMOCYTE-PLUS PO SCH (09:08)
[2018-11-06] MEDS: FLOMAX PO SCH (09:08)
[2018-11-06] MEDS: ATIVAN TAB 0.5 MG PO SCH (09:08)
[2018-11-06] MEDS: COLACE CAP 100 MG PO SCH (09:09)
[2018-11-06] MEDS: MEGACE PO SCH (09:10)
[2018-11-06] MEDS: MILK OF MAGNESIA PO SCH ×2 (09:10→12:41)
[2018-11-06] MEDS: CHECK PATCH XX SCH (09:11)
[2018-11-06] MEDS: CYMBALTA PO SCH (09:12)
[2018-11-06] MEDS: PULMICORT NEB TX 0.5 MG NEB SCH (09:43)
[2018-11-06 11:55] VITALS: BP 100/69
== END 2018-11-06 16:35 | DRG 948 ==
LOC: ER 08:40 → MED/SURG 13:47
PROVIDERS: ADMIT Internal Medicine; ATTEND Internal Medicine
DX: J44.9 Chronic obstructive pulmonary disease, unspecified; R26.89 Other abnormalities of gait and mobility; M54.89 Other dorsalgia; G89.3 Neoplasm related pain (acute) (chronic); C79.51 Secondary malignant neoplasm of bone; R06.02 Shortness of breath; C34.90 Malignant neoplasm of unspecified part of unspecified bronchus or lung; M54.2 Cervicalgia; D64.89 Other specified anemias; R53.1 Weakness
CPT/HCPCS: 36415; 71010; 71045; 72131; 74000; 74018; 80053; 81001; 82607; 82728; 82746; 83540; 83735; 84466; 85025; 94640; 94760; 96365; 96374; 96375; 97110; 97162; 97166; 97530; 99231; 99283; 99284; A4222; S0179; J1170; J1650; J1756; J1885; J2405; J2920; J3475; J7030; J7050; J7620; J7626